=== PATIENT | male | born 1950 | race Caucasian/White ===

== ENCOUNTER → 2016-07-24 | Outpatient (REF) | payer OTHER, MEDICARE ==
[~2016-07-24] MED LIST: ASPI81TA45 OR; CELE100C PO; LIPI10TA; LOVAZA PO; SKEL800T5 PO; TRAM50TA2; TRAM50TA2 OR; VICO5TAB OR; VIT D 2000 PO; VITA50TA12
[2016-07-24 11:58] LABS: INR 0.94
[2016-07-24 12:00] LABS: BASO % 0.4 % (0.0-1.0); EOS # 0.1 K/mm3 (0.0-0.50); EOS % 2.5 % (0.0-3.0); LARGE UNSTAINED CELL # 0.1 K/mm3 (0.0-0.4); LARGE UNSTAINED CELL % 2.1 % (0.0-4.0); LYMPH # 1.6 K/mm3 (1.5-4.5); LYMPH % 27.6 % (24.0-44.0); MEAN CORPUSCULAR HEMOGLOBIN 34.5 pg (27.0-33.0); MEAN CORPUSCULAR HGB CONC 33.7 g/dl (32.0-36.5); MEAN CORPUSCULAR VOLUME 102.6 fl (80.0-96.0); MONO # 0.3 K/mm3 (0.0-0.8); MONO % 6.4 % (0.0-5.0); NEUTROPHILS # 3.3 K/mm3 (1.8-7.7); NEUTROPHILS % 60.9 % (36.0-66.0); PLATELET COUNT, AUTOMATED 137 k/mm3 (150-450); RED CELL DISTRIBUTION WIDTH 12.7 % (11.5-14.5); WHITE BLOOD COUNT 5.4 K/mm3 (4.0-10.0)
[2016-07-24 12:09] LABS: ANION GAP 7 MEQ/L (8-16); BLOOD UREA NITROGEN 14 MG/DL (7-18); CALCIUM LEVEL 8.4 MG/DL (8.8-10.2); CARBON DIOXIDE LEVEL 28 MEQ/L (21-32); CHLORIDE LEVEL 108 MEQ/L (98-107); CREATININE FOR GFR 0.89 MG/DL (0.70-1.30); GLOMERULAR FILTRATION RATE > 60.0 (>49); GLUCOSE, FASTING 98 MG/DL (80-110); SODIUM LEVEL 143 MEQ/L (136-145)
== END ==
LOC: M LABDRAW1 11:38
PROVIDERS: ATTEND Surgery Vascular Surgery
DX: Z01.818 Encounter for other preprocedural examination (principal); I70.211 Atherosclerosis of native arteries of extremities with intermittent claudication, right leg; D69.6 Thrombocytopenia, unspecified

== ENCOUNTER 2016-08-20 12:46 | Inpatient (IN) | payer OTHER, MEDICARE ==
[~2016-08-20] VITALS: Ht 185.4 cm; Wt 106.0 kg
[2016-08-20] MEDS ORDERED: VITA-108 (13:01)
[2016-08-20] MEDS ORDERED: SIMV20TA2 PO ×2 (13:01→16:44)
[2016-08-20] MEDS ORDERED: NS 500 ML IV ONE (13:45)
[2016-08-20] MEDS ORDERED: ISOVUE-370 76% 100ML VIAL (Q9967) As Ordered ONE (14:00)
[2016-08-20 14:03] LABS: BASO % 0.3 % (0.0-1.0); EOS % 0.5 % (0.0-3.0); LARGE UNSTAINED CELL # 0.1 K/mm3 (0.0-0.4); LARGE UNSTAINED CELL % 1.7 % (0.0-4.0); LYMPH # 1.5 K/mm3 (1.5-4.5); LYMPH % 15.9 % (24.0-44.0); MEAN CORPUSCULAR HEMOGLOBIN 33.6 pg (27.0-33.0); MEAN CORPUSCULAR HGB CONC 32.9 g/dl (32.0-36.5); MEAN CORPUSCULAR VOLUME 102.1 fl (80.0-96.0); MONO # 0.5 K/mm3 (0.0-0.8); MONO % 5.6 % (0.0-5.0); NEUTROPHILS # 6.5 K/mm3 (1.8-7.7); NEUTROPHILS % 76.1 % (36.0-66.0); PLATELET COUNT, AUTOMATED 140 k/mm3 (150-450); RED CELL DISTRIBUTION WIDTH 12.8 % (11.5-14.5); WHITE BLOOD COUNT 8.5 K/mm3 (4.0-10.0)
[2016-08-20 14:05] LABS: INR 0.96
[2016-08-20 14:15] LABS: ALBUMIN 3.9 GM/DL (3.2-5.2); ALKALINE PHOSPHATASE 57 U/L (45-117); ALT/SGPT 33 U/L (12-78); ANION GAP 7 MEQ/L (8-16); AST/SGOT 22 U/L (15-37); BILIRUBIN,DIRECT 0.2 MG/DL (0.0-0.2); BILIRUBIN,TOTAL 0.7 MG/DL (0.2-1.0); BLOOD UREA NITROGEN 14 MG/DL (7-18); CALCIUM LEVEL 8.6 MG/DL (8.8-10.2); CARBON DIOXIDE LEVEL 28 MEQ/L (21-32); CHLORIDE LEVEL 105 MEQ/L (98-107); CREATININE FOR GFR 1.08 MG/DL (0.70-1.30); GLOMERULAR FILTRATION RATE > 60.0 (>49); GLUCOSE, FASTING 117 MG/DL (80-110); POTASSIUM SERUM 3.8 MEQ/L (3.5-5.1); SODIUM LEVEL 140 MEQ/L (136-145); TOTAL PROTEIN 6.9 GM/DL (6.4-8.2)
[2016-08-20] MEDS ORDERED: fentaNYL 100 MCG/2 ML INJECTION (J3010) IV ONE (15:30)
[2016-08-20] MEDS ORDERED: VITA-121 PO (16:44)
[2016-08-20] MEDS ORDERED: GLUCTAB6 PO (16:44)
[2016-08-20] MEDS ORDERED: ASPI1TAB PO (16:44)
[2016-08-20] MEDS ORDERED: VITATAB11 PO (16:44)
[2016-08-20] MEDS ORDERED: SENOKOT S TAB PO PRN (16:45)
[2016-08-20] MEDS ORDERED: NORCO, ANEXSIA 5/325MG TABLET (HYDROcodone/ACETAMINOPHEN) PO PRN (16:45)
[2016-08-20] MEDS ORDERED: BISACODYL 5 MG TAB PO PRN (16:45)
[2016-08-20] MEDS ORDERED: MIRALAX *UNIT DOSE* 17GM PACKET PO PRN (16:45)
[2016-08-20] MEDS ORDERED: ONDANSETRON 4MG/2ML VIAL (J2405) IV PRN ×2 (17:00→19:00)
[2016-08-20] MEDS ORDERED: BISACODYL 10 MG SUPP PR PRN (17:00)
[2016-08-20] MEDS ORDERED: LEVALBUTEROL 1.25 MG/0.5 ML CONCENTRATE NEB NEB PRN (17:00)
[2016-08-20] MEDS ORDERED: KETOROLAC 30 MG/ML VIAL (J1885) IV SCH (17:00)
[2016-08-20] MEDS ORDERED: ceFAZolin SOD 1 GM in D5W MINI-BAG PLUS 50 ML IV SCH (17:00)
[2016-08-20] MEDS ORDERED: ACETAMINOPHEN TAB 650MG DOSE (2X325MG) PO PRN (17:00)
[2016-08-20] MEDS ORDERED: PERCOCET 5MG/325MG TAB PO PRN ×2 (17:00)
[2016-08-20] MEDS ORDERED: zolPIDEM TARTRATE 5 MG TAB PO PRN (17:00)
[2016-08-20] MEDS ORDERED: amLODIPine 5 MG TAB PO ONE (17:00)
[2016-08-20] MEDS ORDERED: LEVALBUTEROL 1.25 MG/0.5 ML CONCENTRATE NEB INH PRN (17:15)
[2016-08-20] MEDS ORDERED: KCL 20MEQ IN D5/NS 1000ML 1,000 ML IV SCH (18:00)
[2016-08-20] MEDS ORDERED: LEVALBUTEROL 1.25 MG/0.5 ML CONCENTRATE NEB NEB ONE (18:00)
[2016-08-20] MEDS ORDERED: fentaNYL 100 MCG/2 ML INJECTION (J3010) As Ordered ONE (18:06)
[2016-08-20] MEDS ORDERED: MIDAZOLAM INJ 2 MG/2 ML VIAL (J2250) As Ordered ONE (18:06)
[2016-08-20] MEDS: fentaNYL 100 MCG/2 ML INJECTION (J3010) IV SCH ×2 (18:08→18:13)
[2016-08-20] MEDS ORDERED: MIDAZOLAM INJ 2 MG/2 ML VIAL (J2250) IV SCH (18:30)
[2016-08-20] MEDS ORDERED: FENTANYL 2MCG/ML BUPIVACAINE 0.0625% NACL 250ML CADD As Ordered ONE (18:33)
[2016-08-20] MEDS: FENTANYL/BUPIVACAINE/NACL CADD 250 ML EPIDURAL SCH (18:38)
[2016-08-20] MEDS ORDERED: EPIDURAL/PCA KEYS XX PRN (19:00)
[2016-08-20] MEDS ORDERED: WALLBOXKEY XX PRN (19:00)
[2016-08-20] MEDS ORDERED: diphenhydrAMINE INJ 50MG/ML VIAL (J1200) IV PRN (19:00)
[2016-08-20] MEDS ORDERED: METOCLOPRAMIDE INJ 10MG/2ML VIAL (J2765) IV PRN (19:00)
[2016-08-20] MEDS ORDERED: NALOXONE INJ 0.4 MG/1 ML VIAL (J2310) IV PRN (19:00)
[2016-08-20] MEDS: LEVALBUTEROL 1.25 MG/0.5 ML CONCENTRATE NEB NEB SCH (20:00)
[2016-08-20] MEDS ORDERED: LEVALBUTEROL 1.25 MG/0.5 ML CONCENTRATE NEB INH SCH (20:00)
[2016-08-20 20:08] VITALS: BP 131/73
[2016-08-20] MEDS: MOM 30ML SUSPENSION UDC PO SCH (20:34)
[2016-08-20] MEDS: HEPARIN SOD (PORCINE) 5000 UNITS/ML VIAL SC SCH (20:35)
[2016-08-20] MEDS: KETOROLAC 30 MG/ML VIAL (J1885) IV SCH (20:35)
[2016-08-20] MEDS: DOCUSATE SODIUM 100 MG CAP PO SCH (20:35)
[2016-08-20] MEDS: ASPIRIN 81 MG ENTERIC TAB PO SCH (20:36)
[2016-08-20] MEDS: VITAMIN D 1,000 INTERNATIONAL UNITS TABLET PO SCH (20:36)
[2016-08-20] MEDS: SIMVASTATIN 20 MG TAB PO SCH (20:36)
[2016-08-20] MEDS: PANTOPRAZOLE 40MG TAB (PROTONIX) PO SCH (20:36)
[2016-08-20] MEDS ORDERED: METAXALONE 800 MG TABLET PO SCH (21:00)
[2016-08-20] MEDS: VITAMIN B COMPLEX/VIT C CAP PO SCH (21:00)
[2016-08-20] MEDS ORDERED: VITAMIN D 1,000 INTERNATIONAL UNITS TABLET PO SCH (21:00)
--- NOTE | 2016-08-20 21:17 | ECGEPIP ---
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
[2016-08-20 21:20] LABS: ABG BASE EXCESS 0.5 (-2.0-2.0); ABG HCO3 24.6 MEQ/L (22.0-26.0); ABG PARTIAL PRESSURE CO2 37.6 mmHg (35.0-45.0); ABG STANDARD HCO3 24.9 MEQ/L (22.0-26.0); ABG TOTAL CO2 25.7 MEQ/L (23.0-31.0); ABG pH (ARTERIAL) 7.433 UNITS (7.350-7.450)
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
[2016-08-20 23:59] VITALS: BP 146/79
[2016-08-21] MEDS: KETOROLAC 30 MG/ML VIAL (J1885) IV SCH ×4 (00:59→17:51)
[2016-08-21] MEDS: LEVALBUTEROL 1.25 MG/0.5 ML CONCENTRATE NEB NEB SCH ×4 (02:00→20:22)
[2016-08-21 04:45] VITALS: BP 150/66
[2016-08-21 05:15] LABS: BASO % 0.3 % (0.0-1.0); EOS # 0.1 K/mm3 (0.0-0.50); EOS % 1.2 % (0.0-3.0); LARGE UNSTAINED CELL # 0.2 K/mm3 (0.0-0.4); LARGE UNSTAINED CELL % 3.4 % (0.0-4.0); LYMPH # 2.3 K/mm3 (1.5-4.5); LYMPH % 28.7 % (24.0-44.0); MEAN CORPUSCULAR HEMOGLOBIN 33.6 pg (27.0-33.0); MEAN CORPUSCULAR HGB CONC 32.6 g/dl (32.0-36.5); MEAN CORPUSCULAR VOLUME 103.2 fl (80.0-96.0); MONO # 0.6 K/mm3 (0.0-0.8); NEUTROPHILS # 4.1 K/mm3 (1.8-7.7); NEUTROPHILS % 57.4 % (36.0-66.0); PLATELET COUNT, AUTOMATED 112 k/mm3 (150-450); RED CELL DISTRIBUTION WIDTH 12.9 % (11.5-14.5)
[2016-08-21 05:24] LABS: ALBUMIN/GLOBULIN RATIO 1.15 (1.00-1.93); ALKALINE PHOSPHATASE 47 U/L (45-117); ALT/SGPT 27 U/L (12-78); ANION GAP 8 MEQ/L (8-16); AST/SGOT 14 U/L (15-37); BILIRUBIN,DIRECT 0.2 MG/DL (0.0-0.2); BILIRUBIN,TOTAL 0.6 MG/DL (0.2-1.0); BLOOD UREA NITROGEN 18 MG/DL (7-18); CALCIUM LEVEL 7.8 MG/DL (8.8-10.2); CARBON DIOXIDE LEVEL 27 MEQ/L (21-32); CHLORIDE LEVEL 108 MEQ/L (98-107); CHOLESTEROL LEVEL 112 MG/DL (<200); CREATININE FOR GFR 0.98 MG/DL (0.70-1.30); GLOMERULAR FILTRATION RATE > 60.0 (>49); GLUCOSE, FASTING 106 MG/DL (80-110); MAGNESIUM LEVEL 2.2 MG/DL (1.8-2.4); POTASSIUM SERUM 4.1 MEQ/L (3.5-5.1); SODIUM LEVEL 143 MEQ/L (136-145); TOTAL PROTEIN 5.6 GM/DL (6.4-8.2); TRIGLYCERIDES LEVEL 66 MG/DL (<150)
[2016-08-21 06:32] LABS: ABG BASE EXCESS -2.2 (-2.0-2.0); ABG HCO3 22.2 MEQ/L (22.0-26.0); ABG PARTIAL PRESSURE O2 63.7 mmHg (75.0-100.0); ABG STANDARD HCO3 22.5 MEQ/L (22.0-26.0); ABG TOTAL CO2 23.3 MEQ/L (23.0-31.0); ABG pH (ARTERIAL) 7.396 UNITS (7.350-7.450)
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
[2016-08-21 08:00] VITALS: BP 114/60
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
[2016-08-21] MEDS ORDERED: OMEGA-3 1050MG CAPSULE PO SCH (09:00)
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
[2016-08-21] MEDS ORDERED: LIDOCAINE 1% MDV 20ML VIAL ONE (09:41)
[2016-08-21] MEDS: MOM 30ML SUSPENSION UDC PO SCH (09:54)
[2016-08-21] MEDS: VITAMIN D 1,000 INTERNATIONAL UNITS TABLET PO SCH ×2 (09:54→20:36)
[2016-08-21] MEDS: VITAMIN B COMPLEX/VIT C CAP PO SCH ×2 (09:54→20:36)
[2016-08-21] MEDS: DOCUSATE SODIUM 100 MG CAP PO SCH ×2 (09:55→20:36)
[2016-08-21] MEDS: HEPARIN SOD (PORCINE) 5000 UNITS/ML VIAL SC SCH ×2 (09:56→20:37)
[2016-08-21] MEDS: PANTOPRAZOLE 40MG TAB (PROTONIX) PO SCH (10:00)
[2016-08-21] MEDS: amLODIPine 5 MG TAB PO SCH ×2 (10:01→20:36)
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
[2016-08-21] MEDS ORDERED: SLF 3 ML SYR IV PRN (10:45)
[2016-08-21 11:31] VITALS: BP 131/73
[2016-08-21] MEDS: SLF 3 ML SYR IV SCH ×2 (13:09→20:37)
[2016-08-21 16:00] VITALS: BP 126/68
[2016-08-21 19:53] VITALS: BP 146/69
[2016-08-21] MEDS: FENTANYL/BUPIVACAINE/NACL CADD 250 ML EPIDURAL SCH (20:12)
[2016-08-21] MEDS: SIMVASTATIN 20 MG TAB PO SCH (20:36)
[2016-08-21] MEDS: ASPIRIN 81 MG ENTERIC TAB PO SCH (20:36)
[2016-08-21 23:47] VITALS: BP 134/73
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
[2016-08-22] MEDS: KETOROLAC 30 MG/ML VIAL (J1885) IV SCH ×5 (00:41→23:34)
[2016-08-22] MEDS: LEVALBUTEROL 1.25 MG/0.5 ML CONCENTRATE NEB NEB SCH ×4 (02:15→21:54)
[2016-08-22 04:35] VITALS: BP 130/65
[2016-08-22] MEDS: SLF 3 ML SYR IV SCH ×3 (05:33→20:59)
[2016-08-22 05:39] LABS: BASO % 0.3 % (0.0-1.0); EOS # 0.1 K/mm3 (0.0-0.50); EOS % 1.2 % (0.0-3.0); LARGE UNSTAINED CELL # 0.1 K/mm3 (0.0-0.4); LARGE UNSTAINED CELL % 1.6 % (0.0-4.0); LYMPH # 1.9 K/mm3 (1.5-4.5); LYMPH % 26.3 % (24.0-44.0); MEAN CORPUSCULAR HGB CONC 33.6 g/dl (32.0-36.5); MEAN CORPUSCULAR VOLUME 101.1 fl (80.0-96.0); MONO # 0.5 K/mm3 (0.0-0.8); MONO % 7.3 % (0.0-5.0); NEUTROPHILS # 4.4 K/mm3 (1.8-7.7); NEUTROPHILS % 63.3 % (36.0-66.0); RED CELL DISTRIBUTION WIDTH 12.7 % (11.5-14.5); WHITE BLOOD COUNT 6.9 K/mm3 (4.0-10.0)
[2016-08-22 05:54] LABS: ANION GAP 5 MEQ/L (8-16); BLOOD UREA NITROGEN 20 MG/DL (7-18); CALCIUM LEVEL 8.2 MG/DL (8.8-10.2); CARBON DIOXIDE LEVEL 29 MEQ/L (21-32); CHLORIDE LEVEL 108 MEQ/L (98-107); CREATININE FOR GFR 0.94 MG/DL (0.70-1.30); GLOMERULAR FILTRATION RATE > 60.0 (>49); GLUCOSE, FASTING 93 MG/DL (80-110); POTASSIUM SERUM 4.2 MEQ/L (3.5-5.1); SODIUM LEVEL 142 MEQ/L (136-145)
[2016-08-22 06:06] LABS: PLATELET COUNT, AUTOMATED 94 k/mm3 (150-450)
--- NOTE | 2016-08-22 07:29 | IPN ---
DATE: 08/22/2016 This is now the second hospital day for Mr. Cano. His posterior, inferior and lateral chest wall pain is being well controlled by epidural. He still complains of pain at the fractured clavicle on the left side. He is coughing, able to take deep breaths and is able to move about. His vital signs show a T-max of 99.4 with a heart rate that ranges between 68 and 76 in a sinus rhythm, respiratory rate that is constant at 18 who is 91 to 90% saturated on room air and has blood pressures ranging between 146/69 to 130/65. His intake and output over the past 24 hours has been recorded as 1674 in and 950 out for a positivity of 725 mL. He is now approximately 2300 mL positive. His weight today is 103.3 kg compared to 99.7 kg on admission. On physical examination, he has bilateral crackles both inspiration and expiration with scattered rhonchi throughout. Most of these clear with coughing. Percussion note is full to the diaphragm. Cardiac exam is without murmurs, clicks, gallops or rubs. I cannot feel his PMI. S1 and S2 are normal. Abdomen is soft, nontender, bowel sounds are positive. There is no hepatomegaly. No CVA tenderness. He is tympanitic and slightly distended. He had a bowel movement. Extremities show trace pretibial edema. No calf tenderness. No differential swelling of the upper extremities. Skin is warm, dry and perfused without cyanosis or mottling including that of the nail beds and knees. Neck is supple. There is no jugular venous distention. No subcutaneous emphysema. Trachea is midline. Mouth shows his mucous membranes to be pink and moist. Lips and commissures are without lesions. No thrush. Eyes show his pupils to be equal and reactive. Extraocular motor intact. Sclera anicteric. Neuro shows II through XII intact with gross motor and gross sensation intact. Gait is not tested. Psychiatric shows him to be awake and alert, oriented times three with appropriate mood and affect and conversational. INVESTIGATIONS: His white count today is 6.9 with hemoglobin and hematocrit of 12.0 and 35.7 respectively. Platelet count today is 94 down from 140 on admission and 112 yesterday. Differential shows 63% neutrophils, 26% lymphocytes, 7% monocytes. There are no immature forms of toxic granulations. His electrolytes are normal with a BUN and creatinine of 20 and 0.94 with a glucose of 93 and a calcium of 8.2. His chest x-ray is still pending and I will check it later on this morning. IMPRESSION: 1. Multiple rib fractures left side. 2. Underlying lung contusion. 3. Macrocytosis. 4. Concussion with no further sequela. 5. History of coronary disease. 6. Hyperlipidemia. 7. Fracture left clavicle. 8. Thrombocytopenia. 9. Hypertension. PLAN AND DISCUSSION: We will continue the epidural today. I will plan to start weaning it tomorrow and convert him to oral pain medicines. His platelet count continues to go down and I will therefore discontinue the heparin and check for heparin induced antibodies. I do note that yesterday he had a small pleural effusion on the lateral chest film on the left side that probably represented a small hemothorax. I will check the chest x-ray as soon as it is done today.
[2016-08-22 07:48] VITALS: BP 140/68
[2016-08-22] MEDS: MOM 30ML SUSPENSION UDC PO SCH (08:54)
[2016-08-22] MEDS: DOCUSATE SODIUM 100 MG CAP PO SCH ×2 (08:54→20:58)
[2016-08-22] MEDS: VITAMIN B COMPLEX/VIT C CAP PO SCH ×2 (08:54→20:58)
[2016-08-22] MEDS: PANTOPRAZOLE 40MG TAB (PROTONIX) PO SCH (08:54)
[2016-08-22] MEDS: VITAMIN D 1,000 INTERNATIONAL UNITS TABLET PO SCH ×2 (08:54→20:59)
[2016-08-22] MEDS: amLODIPine 5 MG TAB PO SCH ×2 (08:55→20:41)
[2016-08-22] MEDS: SENOKOT S TAB PO SCH ×2 (08:56→20:58)
--- NOTE | 2016-08-22 10:58 | REP ---
TWO VIEW CHEST: Two views of the chest are performed and compared to a prior study of 08/21/2016. There are left rib fractures. I do not see a significant pneumothorax. There is mild left lateral pleural thickening. There appears to be a small left pleural effusion. There is mild left basilar atelectasis/infiltrate. The right lung remains clear. The cardiomediastinal silhouette is unchanged. IMPRESSION: No significant pneumothorax on the left. Left rib fractures are again noted. There is a small left effusion and basilar atelectasis/infiltrate. Signed by Alfonso Bird MD 08/22/2016 04:22 P
[2016-08-22 11:50] VITALS: BP 136/63
--- NOTE | 2016-08-22 15:58 | ECHO ---
DATE OF PROCEDURE: 08/21/2016 REFERRING PHYSICIAN: Mercedse Barroso MD INDICATION: Heart murmur. HEIGHT: 185 cm WEIGHT: 100 kg DIMENSIONS: IVS: 1.3 LV: 5.1 LVPW: 1.3 LA: 4.4 Aorta: 3.6 FINDINGS: The study is of rather limited technical quality. Left ventricle is of normal size and grossly normal contractility with estimated left ventricular ejection fraction (LVEF) approximately 65%. Mild left ventricular hypertrophy is noted. Right ventricle appears normal size and systolic function. Left atrium is at least mildly enlarged. Right atrium was poorly seen. Aortic valve is tricuspid. It is mildly sclerotic, but mobility appears to be grossly preserved. Mitral valve and tricuspid valves appear normal. The pulmonic valve was not well seen. No pericardial effusion is noted. Inferior vena cava is dilated, but has normal collapse with respiration indicative of probably mildly elevated central venous pressure. Aortic root is normal. Aortic arch and abdominal aorta were not seen. Doppler interrogation of aortic valve reveals no insufficiency and minimal stenosis with mean gradient 10 mmHg. There is normally functioning mitral valve and normally functioning tricuspid valve; also pulmonic valve does not appear to be insufficient even though the visualization was poor. Mitral inflow pattern and tissue Doppler imaging of mitral annulus reveal grade 1 diastolic dysfunction, likely normal finding for patient's age. CONCLUSIONS: 1. Study is of fair technical quality. 2. Normal left ventricle (LV) size with mild left ventricular hypertrophy (LVH) and normal LV systolic function. Grade 1 diastolic dysfunction. 3. Aortic sclerosis resulting in mild stenosis and no insufficiency. 4. No significant pulmonic, tricuspid and mitral valve disease. 5. Likely mildly elevated central venous pressure. 6. Unable to estimate pulmonary artery pressure. COMMENT: Subacute bacterial endocarditis (SBE) prophylaxis is not recommended. Due to limited nature of the study I cannot rule out subtle wall motion abnormalities, but overall left ventricular systolic function is preserved.
[2016-08-22 16:00] VITALS: BP 110/61
[2016-08-22] MEDS: FENTANYL/BUPIVACAINE/NACL CADD 250 ML EPIDURAL SCH (16:39)
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
[2016-08-22 19:42] VITALS: BP 131/66
[2016-08-22] MEDS: SIMVASTATIN 20 MG TAB PO SCH (20:58)
[2016-08-22] MEDS: ASPIRIN 81 MG ENTERIC TAB PO SCH (20:58)
[2016-08-23] VITALS (7 sets, daily range): BP systolic 118–162; BP diastolic 61–94
[2016-08-23] MEDS: LEVALBUTEROL 1.25 MG/0.5 ML CONCENTRATE NEB NEB SCH ×4 (02:49→20:54)
[2016-08-23] MEDS: SLF 3 ML SYR IV SCH ×3 (05:40→20:41)
[2016-08-23] MEDS: KETOROLAC 30 MG/ML VIAL (J1885) IV SCH ×4 (05:40→23:46)
[2016-08-23 06:16] LABS: BASO % 0.4 % (0.0-1.0); EOS # 0.2 K/mm3 (0.0-0.50); EOS % 2.5 % (0.0-3.0); LARGE UNSTAINED CELL # 0.2 K/mm3 (0.0-0.4); LARGE UNSTAINED CELL % 2.4 % (0.0-4.0); LYMPH # 1.8 K/mm3 (1.5-4.5); LYMPH % 25.9 % (24.0-44.0); MEAN CORPUSCULAR HEMOGLOBIN 33.8 pg (27.0-33.0); MEAN CORPUSCULAR HGB CONC 33.1 g/dl (32.0-36.5); MONO # 0.5 K/mm3 (0.0-0.8); MONO % 7.6 % (0.0-5.0); NEUTROPHILS # 3.8 K/mm3 (1.8-7.7); NEUTROPHILS % 61.3 % (36.0-66.0); RED CELL DISTRIBUTION WIDTH 12.8 % (11.5-14.5); WHITE BLOOD COUNT 6.2 K/mm3 (4.0-10.0)
[2016-08-23 06:20] LABS: ANION GAP 6 MEQ/L (8-16); BLOOD UREA NITROGEN 23 MG/DL (7-18); CALCIUM LEVEL 7.9 MG/DL (8.8-10.2); CARBON DIOXIDE LEVEL 27 MEQ/L (21-32); CHLORIDE LEVEL 109 MEQ/L (98-107); CREATININE FOR GFR 0.89 MG/DL (0.70-1.30); GLOMERULAR FILTRATION RATE > 60.0 (>49); GLUCOSE, FASTING 88 MG/DL (80-110); SODIUM LEVEL 142 MEQ/L (136-145)
[2016-08-23 06:23] LABS: PLATELET COUNT, AUTOMATED 98 k/mm3 (150-450)
[2016-08-23] MEDS ORDERED: MAGNESIUM CITRATE 300 ML BTL PO ONE (08:30)
[2016-08-23] MEDS: VITAMIN D 1,000 INTERNATIONAL UNITS TABLET PO SCH ×2 (09:00→20:40)
[2016-08-23] MEDS: DOCUSATE SODIUM 100 MG CAP PO SCH ×2 (09:27→20:38)
[2016-08-23] MEDS: PANTOPRAZOLE 40MG TAB (PROTONIX) PO SCH (09:27)
[2016-08-23] MEDS: SENOKOT S TAB PO SCH ×2 (09:27→20:41)
[2016-08-23] MEDS: VITAMIN B COMPLEX/VIT C CAP PO SCH ×2 (09:27→20:38)
[2016-08-23] MEDS: MOM 30ML SUSPENSION UDC PO SCH (09:28)
[2016-08-23] MEDS: amLODIPine 5 MG TAB PO SCH ×2 (09:28→20:40)
--- NOTE | 2016-08-23 10:02 | REP ---
CHEST, TWO VIEWS: Two views of the chest are performed and compared to a prior study of 08/22/2016. Multiple left rib fractures are again noted with left pleural thickening laterally. Left clavicular fracture is also seen. There is no definite pneumothorax. Left basilar atelectasis/infiltrate and small left effusion are again noted. There may be mild increase in the degree of left lower lobe atelectasis/infiltrate. The right lung is unchanged in appearance as is the cardiomediastinal silhouette. IMPRESSION: Posttraumatic findings on the left as discussed in detail above for the most part appear stable but there may be mild increase in left lower lobe atelectasis/infiltrate. Signed by Alfonso Bird MD 08/23/2016 02:25 P
[2016-08-23] MEDS ORDERED: MAGNESIUM CITRATE 300 ML BTL PO PRN (12:30)
--- NOTE | 2016-08-23 14:52 | IPN ---
DATE: 08/23/2016 Mr. Cano's pain control is doing fairly well. We are weaning the epidural at this point in time and we are down to 6 mL per hour. He still has clavicular pain and he is starting to develop left posterior hemithorax pain. We will supplement his wean with oral analgesics. He is able to cough and bring up sputum, deep breathe and ambulate. His vital signs show a T-max of 99.1 with a heart rate that ranges between 75 and 67 and is sinus rhythm, respiratory rate of 18-20 without the use of accessory muscles, who is 91 to 95% saturated on room air and whose blood pressure is ranging between 134/69 to 140/77. His intake and output the past 24 hours has been recorded as 1476 in and 1475 out for near equality. Weight today is 104.4 kg compared to 103.3 kg yesterday. On physical examination, his lungs show normal vesicular sounds, which are accentuated with course rhonchi, which clear with coughing. The crackles I heard yesterday are much diminished. Percussion note is full to the diaphragm. Cardiac exam is without murmurs, clicks, gallops or rubs. I cannot feel his PMI. S1 and S2 are normal. Abdomen is soft, nontender, still distended. He has a bowel movement however. Bowel sounds are positive. There is no hepatomegaly. No CVA tenderness. Extremities show trace pretibial edema today. No calf tenderness. No differential swelling of the upper extremities. Skin is warm, dry and perfused without cyanosis or mottling including that of the nail beds and knees. Neck is supple. There is no jugular venous distention. No subcutaneous emphysema. Trachea is midline. Mouth shows his mucous membranes to be pink and moist. Lips and commissures are without lesions. There is no thrush. Eyes show his pupils to be equal and reactive. Extraocular motors intact. Sclera nonicteric. Neuro shows II through XII intact along with gross motor and gross sensation intact. Gait is not tested. Psychiatric shows him to be awake and alert, oriented times three with appropriate mood and affect and conversational. His white count today is 6.2 with hemoglobin and hematocrit of 11.4 and 35.5. Platelet count today is 98 and stabilized. Differential shows 61% neutrophils, 25% lymphocytes, 7% monocytes. There are no immature forms. No toxic granulations. His electrolytes are essentially normal with a BUN and creatinine of 23 and 0.89 with a glucose of 88 and a calcium of 7.9. His heparin induced antibody is still pending. His chest x-ray today shows his lung fully expanded to the chest wall. The pleural effusion in the left costophrenic angle is resolving. He has pleural thickening of the rib fractures. The lateral film looks improved with regard to the pleural collection. He still has atelectasis in the posterior segment of the left lower lobe. There is no subcutaneous emphysema. IMPRESSION: 1. Multiple rib fractures left side. 2. Underlying lung contusion. 3. Macrocytosis. 4. Concussion with no further sequela. 5. History of coronary artery disease. 6. Hyperlipidemia. 7. Fracture of the left clavicle. 8. Thrombocytopenia, stabilized. 9. Hypertension. 10. Chronic obstructive pulmonary disease (COPD). 11. Tobacco abuse. PLAN AND DISCUSSION: We are going to wean his epidural today and change him over to oral pain medications. If the oral pain medications do not hold him, I will add a fentanyl patch. Tentatively I am planning to discharge him tomorrow.
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
[2016-08-23] MEDS: traMADol 50 MG TAB PO SCH ×2 (17:21→20:40)
[2016-08-23] MEDS: SIMVASTATIN 20 MG TAB PO SCH (20:38)
[2016-08-23] MEDS: ASPIRIN 81 MG ENTERIC TAB PO SCH (20:40)
[2016-08-23] MEDS: NORCO, ANEXSIA 5/325MG TABLET (HYDROcodone/ACETAMINOPHEN) PO PRN (22:29)
[2016-08-24] MEDS: LEVALBUTEROL 1.25 MG/0.5 ML CONCENTRATE NEB NEB SCH ×4 (02:33→20:21)
[2016-08-24] MEDS: NORCO, ANEXSIA 5/325MG TABLET (HYDROcodone/ACETAMINOPHEN) PO PRN ×2 (03:55→16:52)
[2016-08-24 04:00] VITALS: BP 121/87
[2016-08-24] MEDS: KETOROLAC 30 MG/ML VIAL (J1885) IV SCH ×3 (05:43→17:56)
[2016-08-24] MEDS: SLF 3 ML SYR IV SCH ×3 (05:43→21:23)
[2016-08-24 05:56] LABS: BASO % 0.4 % (0.0-1.0); EOS # 0.2 K/mm3 (0.0-0.50); EOS % 3.5 % (0.0-3.0); LARGE UNSTAINED CELL # 0.1 K/mm3 (0.0-0.4); LARGE UNSTAINED CELL % 2.7 % (0.0-4.0); LYMPH # 1.5 K/mm3 (1.5-4.5); LYMPH % 25.7 % (24.0-44.0); MEAN CORPUSCULAR HEMOGLOBIN 33.7 pg (27.0-33.0); MEAN CORPUSCULAR HGB CONC 33.3 g/dl (32.0-36.5); MEAN CORPUSCULAR VOLUME 101.2 fl (80.0-96.0); MONO # 0.4 K/mm3 (0.0-0.8); NEUTROPHILS # 3.2 K/mm3 (1.8-7.7); NEUTROPHILS % 60.8 % (36.0-66.0); PLATELET COUNT, AUTOMATED 106 k/mm3 (150-450); RED CELL DISTRIBUTION WIDTH 12.7 % (11.5-14.5); WHITE BLOOD COUNT 5.2 K/mm3 (4.0-10.0)
[2016-08-24 06:07] LABS: ANION GAP 3 MEQ/L (8-16); BLOOD UREA NITROGEN 21 MG/DL (7-18); CALCIUM LEVEL 8.5 MG/DL (8.8-10.2); CARBON DIOXIDE LEVEL 31 MEQ/L (21-32); CHLORIDE LEVEL 106 MEQ/L (98-107); CREATININE FOR GFR 0.91 MG/DL (0.70-1.30); GLOMERULAR FILTRATION RATE > 60.0 (>49); GLUCOSE, FASTING 105 MG/DL (80-110); POTASSIUM SERUM 4.5 MEQ/L (3.5-5.1); SODIUM LEVEL 140 MEQ/L (136-145)
[2016-08-24 07:40] VITALS: BP 108/71
[2016-08-24] MEDS: SENOKOT S TAB PO SCH ×2 (09:03→21:23)
[2016-08-24] MEDS: VITAMIN D 1,000 INTERNATIONAL UNITS TABLET PO SCH ×2 (09:03→21:23)
[2016-08-24] MEDS: VITAMIN B COMPLEX/VIT C CAP PO SCH ×2 (09:03→21:23)
[2016-08-24] MEDS: amLODIPine 5 MG TAB PO SCH ×2 (09:03→21:00)
[2016-08-24] MEDS: PANTOPRAZOLE 40MG TAB (PROTONIX) PO SCH (09:03)
[2016-08-24] MEDS: DOCUSATE SODIUM 100 MG CAP PO SCH ×2 (09:03→21:23)
[2016-08-24] MEDS: MOM 30ML SUSPENSION UDC PO SCH (09:03)
[2016-08-24] MEDS: traMADol 50 MG TAB PO SCH ×2 (09:04→12:26)
--- NOTE | 2016-08-24 09:15 | REP ---
CHEST PA AND LATERAL: 08/24/2016. Clinical history: Lung contusion. Comparison 08/23/2016, 08/22/2016. The retrocardiac left lower lobe atelectasis or infiltrate with effusion is again noted, it shows slight further increase. There is a slight decrease in overall level of inflation. The epidural catheter has been removed. Fracture of the mid shaft left clavicle and multiple left rib fractures again noted. Some minor apical scarring bilaterally with pleural thickening both sides, unchanged. No free air. Impression: 1. A lesser degree of inflation with increased retrocardiac left lower lobe atelectasis and/or infiltrate with effusion. 2. The post-traumatic changes of fractures of the left clavicle and upper lateral left ribs are stable. Signed by Nabil Apodaca MD 08/24/2016 02:53 P
[2016-08-24 12:00] VITALS: BP 120/61
[2016-08-24] MEDS ORDERED: FENTANYL REMOVAL DOCUMENTATION MISC XX SCH (15:00)
[2016-08-24] MEDS ORDERED: PERCOCET 5MG/325MG TAB PO PRN (15:00)
[2016-08-24] MEDS ORDERED: fentaNYL 25 MCG/HR PATCH TOP SCH (15:00)
[2016-08-24] MEDS ORDERED: FUROSEMIDE 40 MG/4 ML VIAL (J1940) IV ONE (15:00)
[2016-08-24 16:00] VITALS: BP 125/69
--- NOTE | 2016-08-24 19:07 | IPN ---
DATE: 08/24/2016 My intention was to discharge Mr. Cano today, however, his pain is still significant and he has major rhonchi which are not clearing with cough very well as he cannot cough very well. I am therefore going to change his pain medications around. His vital signs show a T-max of 98.9 with a heart rate that ranges between 61 and 57 in a sinus rhythm, respiratory rate of 18 to 20 without the use of accessory muscles who is 94 to 93% saturated on room air and his blood pressure is ranging between 120/61 to 108/71. His intake and output over the past 24 hours has been recorded as 1823 in and 650 out for a positivity of 1173 mL. His is now positive nearly 3000 mL. I will therefore also diurese him. His weight today is 105.5 kg compared to 104.4 kg yesterday. PHYSICAL EXAMINATION: Both lungs show coarse rhonchi throughout which do not all clear with coughing. Percussion note is full to the diaphragm. Cardiac exam is without murmurs, clicks, gallops or rubs. I cannot feel his point of maximal impulse (PMI). S1 and S2 are normal. Abdomen is soft and nontender. Bowel sounds are positive. There is no hepatomegaly. No costovertebral angle (CVA) tenderness. Extremities show no pretibial edema. No calf tenderness. No differential swelling of the upper extremities. Skin is warm, dry and perfused without cyanosis or mottling including that of the nail beds and the knees. Neck is supple. There is no jugular venous distention. No subcutaneous emphysema. Trachea is midline. Mouth shows his mucous membranes to be pink and moist. Lips and commissures without lesions. No thrush. Eyes show his pupils to be equal, reactive. Extraocular muscles intact. Sclera anicteric. Neuro shows II through XII intact. Gross motor and gross sensation intact. Gait is not tested. Psychiatric shows him to be awake, alert and oriented times three with appropriate mood, affect and conversational. His white count today is 5.2 with a hemoglobin and hematocrit of 11.9 and 35.7, essentially unchanged from yesterday with a platelet count of 106 which is now going up. I have discontinued his heparin a few days ago, secondary to a decreasing platelet count. Differential shows 60% neutrophils, 25% lymphocytes, 7% monocytes, 3% eosinophils. Chemistry: Normal electrolytes with a BUN and creatine of 21 and 0.91. Glucose is 105 with a calcium of 8.5. Heparin induced antibody is 0.166 which is within normal limits. IMPRESSION: 1. Multiple rib fractures left side. 2. Underlying lung contusion. 3. Macrocytosis. 4. Concussion with no further sequela. 5. History of coronary disease. 6. Hyperlipidemia. 7. Fracture of the left clavicle. 8. Thrombocytopenia, stabilized. 9. Hypertension. 10. Chronic obstructive pulmonary disease. 11. Tobacco abuse. 12. Inadequate pain control with decreased clearing of secretions. PLAN AND DISCUSSION: I will add fentanyl patch along and will also diurese him. We will get him up and around walking and try and make him cough and deep breath. He is already on lung expansion therapy. Hopefully we will be able to discharge him tomorrow.
[2016-08-24 20:00] VITALS: BP 125/68
[2016-08-24] MEDS: ASPIRIN 81 MG ENTERIC TAB PO SCH (21:23)
[2016-08-24] MEDS: SIMVASTATIN 20 MG TAB PO SCH (21:23)
[2016-08-24 23:59] VITALS: BP 141/78
[2016-08-25] MEDS: KETOROLAC 30 MG/ML VIAL (J1885) IV SCH ×3 (00:29→11:50)
[2016-08-25] MEDS: LEVALBUTEROL 1.25 MG/0.5 ML CONCENTRATE NEB NEB SCH ×3 (02:00→13:30)
[2016-08-25 04:00] VITALS: BP 131/65
[2016-08-25 06:04] LABS: BASO % 0.3 % (0.0-1.0); EOS # 0.2 K/mm3 (0.0-0.50); EOS % 2.7 % (0.0-3.0); LARGE UNSTAINED CELL # 0.1 K/mm3 (0.0-0.4); LARGE UNSTAINED CELL % 1.9 % (0.0-4.0); LYMPH # 1.4 K/mm3 (1.5-4.5); LYMPH % 17.6 % (24.0-44.0); MEAN CORPUSCULAR HEMOGLOBIN 33.9 pg (27.0-33.0); MEAN CORPUSCULAR HGB CONC 33.5 g/dl (32.0-36.5); MEAN CORPUSCULAR VOLUME 101.3 fl (80.0-96.0); MONO # 0.6 K/mm3 (0.0-0.8); MONO % 7.8 % (0.0-5.0); NEUTROPHILS # 5.1 K/mm3 (1.8-7.7); NEUTROPHILS % 69.8 % (36.0-66.0); PLATELET COUNT, AUTOMATED 126 k/mm3 (150-450); RED CELL DISTRIBUTION WIDTH 12.9 % (11.5-14.5); WHITE BLOOD COUNT 7.2 K/mm3 (4.0-10.0)
[2016-08-25 06:05] LABS: ANION GAP 6 MEQ/L (8-16); BLOOD UREA NITROGEN 24 MG/DL (7-18); CALCIUM LEVEL 8.4 MG/DL (8.8-10.2); CARBON DIOXIDE LEVEL 30 MEQ/L (21-32); CHLORIDE LEVEL 102 MEQ/L (98-107); CREATININE FOR GFR 0.96 MG/DL (0.70-1.30); GLOMERULAR FILTRATION RATE > 60.0 (>49); GLUCOSE, FASTING 92 MG/DL (80-110); POTASSIUM SERUM 4.5 MEQ/L (3.5-5.1); SODIUM LEVEL 138 MEQ/L (136-145)
[2016-08-25] MEDS: SLF 3 ML SYR IV SCH (06:19)
[2016-08-25 08:00] VITALS: BP 129/69
[2016-08-25] MEDS: VITAMIN B COMPLEX/VIT C CAP PO SCH (08:58)
[2016-08-25] MEDS: MOM 30ML SUSPENSION UDC PO SCH (08:58)
[2016-08-25] MEDS: VITAMIN D 1,000 INTERNATIONAL UNITS TABLET PO SCH (08:58)
[2016-08-25 08:59] VITALS: BP 129/69
[2016-08-25] MEDS: SENOKOT S TAB PO SCH (08:59)
[2016-08-25] MEDS: DOCUSATE SODIUM 100 MG CAP PO SCH (08:59)
[2016-08-25] MEDS: amLODIPine 5 MG TAB PO SCH (08:59)
[2016-08-25] MEDS: PANTOPRAZOLE 40MG TAB (PROTONIX) PO SCH (08:59)
[2016-08-25 12:00] VITALS: BP 130/73
[2016-08-25] MEDS ORDERED: PERCOCET PO (12:03)
[2016-08-25] MEDS ORDERED: FENT25PA TOP (12:03)
--- NOTE | 2016-08-25 12:06 | REP ---
Chest x-ray: Two views. History: Lung contusion. Comparison study: August 24, 2016. Findings: There is coarse discoid atelectasis in the right lower lobe which is more pronounced than on yesterday's radiograph. There is increased density in the left lower lobe obscuring the descending aorta and the left hemidiaphragm partially consistent with atelectasis in the left lower lobe. This is unchanged. Some pleural thickening is seen along the left lateral chest wall. There is a displaced rib fracture along the left lateral chest wall as well. This is unchanged. No pneumothorax is seen. Impression: Increased discoid atelectasis right lower lobe region compared to yesterday's study. Atelectasis, small pleural effusion, and some left pleural thickening seen on the left side unchanged. Signed by Vernon Funk MD 08/25/2016 01:24 P
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
== END 2016-08-25 15:33 | disposition home or self-care (01) | DRG 184 ==
LOC: EDBD 12:46 → M ED 14:17 → M ED INP 16:49 → M PCU 19:17
PROVIDERS: ADMIT Thoracic Surgery (Cardiothoracic Vascular Surgery); ATTEND Thoracic Surgery (Cardiothoracic Vascular Surgery)
PROC: 3E0S3NZ Introduction of Analgesics, Hypnotics, Sedatives into Epidural Space, Percutaneous Approach (ICD-10-PCS; principal; 2016-08-20 17:33)
DX: S22.42XA Multiple fractures of ribs, left side, initial encounter for closed fracture (principal); S27.329A Contusion of lung, unspecified, initial encounter; S42.025A Nondisplaced fracture of shaft of left clavicle, initial encounter for closed fracture; J44.9 Chronic obstructive pulmonary disease, unspecified; F17.210 Nicotine dependence, cigarettes, uncomplicated; I10 Essential (primary) hypertension; D69.6 Thrombocytopenia, unspecified; E78.5 Hyperlipidemia, unspecified; I25.10 Atherosclerotic heart disease of native coronary artery without angina pectoris; D75.89 Other specified diseases of blood and blood-forming organs; Z79.82 Long term (current) use of aspirin; Z79.899 Other long term (current) drug therapy; Z86.718 Personal history of other venous thrombosis and embolism; I73.9 Peripheral vascular disease, unspecified; M19.90 Unspecified osteoarthritis, unspecified site; Z85.51 Personal history of malignant neoplasm of bladder; S06.0X0A Concussion without loss of consciousness, initial encounter; K59.00 Constipation, unspecified; V23.4XXA Motorcycle driver injured in collision with car, pick-up truck or van in traffic accident, initial encounter

== ENCOUNTER 2016-08-27 17:37 | Inpatient (IN) | payer OTHER, MEDICARE ==
[~2016-08-27] VITALS: Ht 185.4 cm; Wt 103.6 kg
[~2016-08-27 17:37] MED LIST changes: +ASPI1TAB PO; +FENT25PA TOP; +GLUCTAB6 PO; +PERCOCET PO; +SIMV20TA2 PO; +VITA-108; +VITA-121 PO; +VITATAB11 PO
[2016-08-27] MEDS ORDERED: methylPREDNISolone INJ 125 MG/2 ML VIAL (J2930) IV ONE (18:00)
[2016-08-27] MEDS ORDERED: IPRATROPIUM 0.5MG/ALBUTEROL 2.5MG INH SOL UD 3ML (DUONEB)(J7620) NEB ONE (18:00)
[2016-08-27] MEDS ORDERED: ALBUTEROL SULFATE 2.5 MG/0.5 ML INH NEB SOLN INH ONE (18:00)
[2016-08-27 18:52] LABS: BASO % 0.3 % (0.0-1.0); EOS # 0.1 K/mm3 (0.0-0.50); EOS % 2.1 % (0.0-3.0); LARGE UNSTAINED CELL # 0.2 K/mm3 (0.0-0.4); LARGE UNSTAINED CELL % 2.2 % (0.0-4.0); LYMPH # 1.6 K/mm3 (1.5-4.5); LYMPH % 20.8 % (24.0-44.0); MEAN CORPUSCULAR HEMOGLOBIN 34.1 pg (27.0-33.0); MEAN CORPUSCULAR VOLUME 100.2 fl (80.0-96.0); MONO # 0.4 K/mm3 (0.0-0.8); MONO % 6.2 % (0.0-5.0); NEUTROPHILS # 4.8 K/mm3 (1.8-7.7); NEUTROPHILS % 68.4 % (36.0-66.0); PLATELET COUNT, AUTOMATED 160 k/mm3 (150-450)
[2016-08-27 19:15] LABS: ANION GAP 10 MEQ/L (8-16); BLOOD UREA NITROGEN 21 MG/DL (7-18); CALCIUM LEVEL 8.7 MG/DL (8.8-10.2); CARBON DIOXIDE LEVEL 27 MEQ/L (21-32); CHLORIDE LEVEL 104 MEQ/L (98-107); CREATININE FOR GFR 0.99 MG/DL (0.70-1.30); GLOMERULAR FILTRATION RATE > 60.0 (>49); GLUCOSE, FASTING 107 MG/DL (80-110); POTASSIUM SERUM 4.2 MEQ/L (3.5-5.1); SODIUM LEVEL 141 MEQ/L (136-145)
[2016-08-27] MEDS ORDERED: PERCOCET 5MG/325MG TAB PO ONE (19:15)
[2016-08-27] MEDS ORDERED: ISOVUE-370 76% 100ML VIAL (Q9967) As Ordered ONE (19:36)
--- NOTE | 2016-08-27 20:10 | REPUSA ---
CT angiogram of the chest Clinical statement: Chest pain and shortness of breath. Technique: Multiple axial CT images were obtained from the thoracic inlet through the upper abdomen a fter a bolus administration of nonionic intravenous contrast. Coronal and sagittal reconstructions we re also obtained. Comparison: August 20, 2016. Findings: The pulmonary arteries are well-opacified with contrast, with no intraluminal filling defec ts to suggest embolism. The thoracic aorta is unremarkable. Thyroid gland is within normal limits. Th ere is no thoracic lymphadenopathy. There is a moderate left-sided pleural effusion with infiltrate and consolidation of the left lower lobe. Minimal atelectasis is seen in the right lower lobe. Limit ed imaging of the upper abdomen is unremarkable. There are no suspicious osseous lesions. Impression: 1. No evidence of pulmonary embolism. 2 Moderate left-sided pleural effusion with left lower lobe infiltrate and consolidation. 3. Minimal atelectasis in the right lower lobe.
[2016-08-27] MEDS ORDERED: NS 1,000 ML IV ONE (20:45)
[2016-08-27] MEDS ORDERED: AZITHROMYCIN INJ 500 MG, VIAL MATE ADAPTER 1 EACH in D5W 250 ML IV ONE (20:45)
[2016-08-27] MEDS ORDERED: CEFEPIME HCL 2 GM in D5W MINI-BAG PLUS 50 ML IV ONE (20:45)
[2016-08-27] MEDS ORDERED: VANCOMYCIN HCL 1,000 MG, VIAL MATE ADAPTER 1 EACH in D5W 250 ML IV ONE (20:45)
[2016-08-27] MEDS ORDERED: PERC5TAB6 PO (21:35)
[2016-08-27] MEDS ORDERED: FENT25PA TD (21:35)
[2016-08-27] MEDS ORDERED: ONDANSETRON 4MG/2ML VIAL (J2405) IV PRN (22:00)
[2016-08-27] MEDS ORDERED: PERCOCET 5MG/325MG TAB PO PRN (22:00)
[2016-08-27] MEDS ORDERED: FENTANYL REMOVAL DOCUMENTATION MISC XX SCH (22:00)
[2016-08-27] MEDS ORDERED: IPRATROPIUM 0.5MG/ALBUTEROL 2.5MG INH SOL UD 3ML (DUONEB)(J7620) NEB PRN (22:00)
--- NOTE | 2016-08-27 23:16 | PHACANCOPD ---
PHARMACY VANCOMYCIN DOSING Pt Demographics Demographics Patient Age:66 , Weight: , Gender: male Adjusted Body Weight Date: 08/27/16, Adjusted Body Weight: [88] Kg Events Past 24 Hours Events Past 24 Hours: NO: Change in CrCl, Dialysis, Diuretic Therapy, Elevation in WBC, Fever, Other, Pending Diagnostics, Pending Procedures Vancomycin Vancomycin Target Ranges: 15-20 mcg/ml Vancomycin Load Y/N: Yes Load Dose Date Time Vancomycin Load Dose: 2000MG Date: 08-27 Time: 2300 Vancomycin Dose Date: 08/27/16. Current Vancomycin Dose: [1000MG Q8H] Intermittent Dosing?: No Labs Labs Item Value Date Time White Blood Count 7.0 K/mm3 08/27/161836 Creatinine 0.99 MG/DL 08/27/161836 Blood Urea Nitrogen 21 MG/DL H 08/27/161836 Micro Microbiology 08/27/16 Blood Culture, Received Pending 08/27/16 Gram Stain, Received Pending 08/27/16 Sputum Culture, Received Pending Creatinine Clearance Date:08/27/16. Creatinine Clearance: [82]. Pending Labs Trough 08-28 @2100 Assessment and Plan Maintaining Current Dose?: Yes Reason for dose change: No Dose Change Pharmacist Note Pharmacist Note Date: 08/27/16. Pharmacist note:Dosed at 1000mg q8h with a trough ordered for @2100. Will continue to monitor and make adjustments as needed. MULU INIGUE[facility] Aug 27, 2016 23:16
[2016-08-27] MEDS: ASPIRIN 81 MG ENTERIC TAB PO SCH (23:38)
[2016-08-27] MEDS: guaiFENesin ER 600 MG TAB PO SCH (23:38)
[2016-08-27] MEDS: SIMVASTATIN 20 MG TAB PO SCH (23:39)
[2016-08-27] MEDS: VITAMIN D 1,000 INTERNATIONAL UNITS TABLET PO SCH (23:39)
[2016-08-27] MEDS: HEPARIN SOD (PORCINE) 5000 UNITS/ML VIAL SC SCH (23:39)
[2016-08-27] MEDS: SENOKOT S TAB PO SCH (23:39)
[2016-08-27] MEDS: VITAMIN B COMPLEX/VIT C CAP PO SCH (23:39)
[2016-08-28] MEDS: VANCOMYCIN HCL 1,000 MG, VIAL MATE ADAPTER 1 EACH in D5W 250 ML IV SCH ×2 (01:13→08:51)
[2016-08-28] MEDS: IPRATROPIUM 0.5MG/ALBUTEROL 2.5MG INH SOL UD 3ML (DUONEB)(J7620) NEB SCH ×4 (01:30→20:30)
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
[2016-08-28 05:49] VITALS: BP 154/88
[2016-08-28 06:35] VITALS: BP 154/88
[2016-08-28 06:43] LABS: MEAN CORPUSCULAR HEMOGLOBIN 34.1 pg (27.0-33.0); MEAN CORPUSCULAR HGB CONC 33.7 g/dl (32.0-36.5); MEAN CORPUSCULAR VOLUME 101.1 fl (80.0-96.0); WHITE BLOOD COUNT 6.6 K/mm3 (4.0-10.0)
[2016-08-28 07:01] LABS: ANION GAP 7 MEQ/L (8-16); BLOOD UREA NITROGEN 20 MG/DL (7-18); CALCIUM LEVEL 8.7 MG/DL (8.8-10.2); CARBON DIOXIDE LEVEL 25 MEQ/L (21-32); CHLORIDE LEVEL 106 MEQ/L (98-107); CREATININE FOR GFR 0.94 MG/DL (0.70-1.30); GLOMERULAR FILTRATION RATE > 60.0 (>49); GLUCOSE, FASTING 152 MG/DL (80-110); MAGNESIUM LEVEL 2.1 MG/DL (1.8-2.4); POTASSIUM SERUM 4.5 MEQ/L (3.5-5.1); SODIUM LEVEL 138 MEQ/L (136-145)
[2016-08-28] MEDS ORDERED: PREVNAR 13 VACCINE SYRINGE (CPT CODE:90670) IM SCH (07:45)
[2016-08-28 07:55] VITALS: BP 137/81
[2016-08-28] MEDS: guaiFENesin ER 600 MG TAB PO SCH ×2 (08:43→20:54)
[2016-08-28] MEDS: KETOROLAC 30 MG/ML VIAL (J1885) IV SCH ×3 (08:43→20:53)
[2016-08-28] MEDS: SENOKOT S TAB PO SCH ×2 (08:43→20:53)
[2016-08-28] MEDS: VITAMIN B COMPLEX/VIT C CAP PO SCH ×2 (09:00→20:53)
[2016-08-28] MEDS ORDERED: CEFEPIME HCL 2 GM in D5W MINI-BAG PLUS 50 ML IV SCH (10:00)
[2016-08-28] MEDS: HEPARIN SOD (PORCINE) 5000 UNITS/ML VIAL SC SCH ×2 (10:09→21:02)
[2016-08-28] MEDS: VITAMIN D 1,000 INTERNATIONAL UNITS TABLET PO SCH ×2 (10:09→20:54)
[2016-08-28 12:00] VITALS: BP 146/65
[2016-08-28 16:00] VITALS: BP 122/66
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
[2016-08-28 20:00] VITALS: BP 137/71
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
[2016-08-28] MEDS: ASPIRIN 81 MG ENTERIC TAB PO SCH (20:54)
[2016-08-28] MEDS: SIMVASTATIN 20 MG TAB PO SCH (20:54)
[2016-08-28] MEDS ORDERED: AZITHROMYCIN INJ 500 MG, VIAL MATE ADAPTER 1 EACH in D5W 250 ML IV SCH (21:00)
[2016-08-29 01:00] VITALS: BP 128/64
[2016-08-29] MEDS: KETOROLAC 30 MG/ML VIAL (J1885) IV SCH ×2 (01:07→07:58)
[2016-08-29] MEDS: IPRATROPIUM 0.5MG/ALBUTEROL 2.5MG INH SOL UD 3ML (DUONEB)(J7620) NEB SCH ×2 (01:59→07:40)
--- NOTE | 2016-08-29 04:46 | ECGEPIP ---
Stationary ECG Study [facility] - ED Test Date: 2016-08-27 Pat Name: VICKIE FAYE Department: Room: [place] [address] Gender: M Dredgemaster: gloria : 1950 Requested By: Rl Malik Order Number: [id number] Reading MD: Isaac Arndt Measurements Intervals [place] Rate: 85 P: 27 FL: 162 QRS: -36 QRSD: 93 T: 74 QT: 341 QTc: 407 Interpretive Statements SINUS RHYTHM WITH OCCASIONAL VENTRICULAR PREMATURE COMPLEXES LEFT AXIS DEVIATION LAFB LEFT VENTRICULAR HYPERTROPHY SIMILAR TO 08/20/16 Electronically Signed On 08-29-2016 4:45:51 EDT by Isaac Arndt
[2016-08-29 05:00] VITALS: BP 127/69
[2016-08-29 05:10] LABS: MEAN CORPUSCULAR HGB CONC 32.5 g/dl (32.0-36.5); MEAN CORPUSCULAR VOLUME 101.6 fl (80.0-96.0); RED CELL DISTRIBUTION WIDTH 12.8 % (11.5-14.5); WHITE BLOOD COUNT 6.8 K/mm3 (4.0-10.0)
[2016-08-29 05:21] LABS: ANION GAP 7 MEQ/L (8-16); BLOOD UREA NITROGEN 24 MG/DL (7-18); CALCIUM LEVEL 8.2 MG/DL (8.8-10.2); CARBON DIOXIDE LEVEL 28 MEQ/L (21-32); CHLORIDE LEVEL 109 MEQ/L (98-107); CREATININE FOR GFR 0.87 MG/DL (0.70-1.30); GLOMERULAR FILTRATION RATE > 60.0 (>49); GLUCOSE, FASTING 89 MG/DL (80-110); MAGNESIUM LEVEL 1.9 MG/DL (1.8-2.4); POTASSIUM SERUM 4.4 MEQ/L (3.5-5.1); SODIUM LEVEL 144 MEQ/L (136-145)
--- NOTE | 2016-08-29 07:49 | REP ---
Clinical: Shortness of breath. Comparison: 08/25/2016 and 08:49 p.m. Findings: Increased interstitial markings suggest the possibility of pulmonary vascular congestion along with bibasilar atelectasis and moderate left pleural effusion. Findings are similar to prior examination. Impression: Bibasilar atelectasis and left lower lobe consolidation with left pleural effusion similar to prior examination. Cannot exclude associated interstitial edema. Signed by Yasmany Payton MD 08/29/2016 07:41 A
[2016-08-29] MEDS ORDERED: SENN1TAB2 PO (07:59)
[2016-08-29] MEDS ORDERED: GUAI60TA PO (07:59)
[2016-08-29 08:00] VITALS: BP 156/79
[2016-08-29] MEDS: VITAMIN D 1,000 INTERNATIONAL UNITS TABLET PO SCH (08:36)
[2016-08-29] MEDS: VITAMIN B COMPLEX/VIT C CAP PO SCH (08:37)
[2016-08-29] MEDS: guaiFENesin ER 600 MG TAB PO SCH (08:37)
[2016-08-29] MEDS: SENOKOT S TAB PO SCH (08:37)
[2016-08-29] MEDS: HEPARIN SOD (PORCINE) 5000 UNITS/ML VIAL SC SCH (10:00)
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
[2016-08-30] MEDS ORDERED: fentaNYL 25 MCG/HR PATCH TD SCH (09:00)
== END 2016-08-29 11:55 | disposition home or self-care (01) | DRG 206 ==
LOC: EDBD 17:37 → M ED 18:32 → M ED INP 21:52 → M ICU 08-28 05:27
PROVIDERS: ADMIT Hospitalist; ATTEND Internal Medicine Nephrology
DX: J98.11 Atelectasis (principal); J90 Pleural effusion, not elsewhere classified; J44.9 Chronic obstructive pulmonary disease, unspecified; I25.10 Atherosclerotic heart disease of native coronary artery without angina pectoris; E78.5 Hyperlipidemia, unspecified; M54.5 Low back pain; I73.9 Peripheral vascular disease, unspecified; Z79.82 Long term (current) use of aspirin; Z79.899 Other long term (current) drug therapy; Z85.51 Personal history of malignant neoplasm of bladder; Z86.718 Personal history of other venous thrombosis and embolism; F17.200 Nicotine dependence, unspecified, uncomplicated

== ENCOUNTER → 2016-09-14 | Outpatient (CLI) | payer OTHER ==
[~2016-09-14] MED LIST changes: +FENT25PA TD; +GUAI60TA PO; +PERC5TAB6 PO; +SENN1TAB2 PO
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
== END ==
LOC: M SMT 10:45
PROVIDERS: ATTEND Thoracic Surgery (Cardiothoracic Vascular Surgery)
DX: S22.42XS Multiple fractures of ribs, left side, sequela (principal); V23.4XXS Motorcycle driver injured in collision with car, pick-up truck or van in traffic accident, sequela; S27.329S Contusion of lung, unspecified, sequela

== ENCOUNTER → 2017-03-06 | Outpatient (CLI) | payer OTHER ==
[~2017-03-06] MED LIST changes: -GUAI60TA PO; +MUCI600T31 PO; +PERC5TAB12 PO; -PERC5TAB6 PO
--- NOTE | 2017-03-06 20:42 | REP ---
CT LEFT SHOULDER WITHOUT CONTRAST: 03/06/2017. Clinical history: Prior left clavicle fracture. Evaluate for possible nonunion. Comparison: Acute fracture series 08/20/2016. Findings: Axial images with coronal and sagittal reconstructions provided. The mid shaft fracture of the left clavicle is noted. There is a more than full shaft width inferior displacement of the lateral fragment. Large callus formation at both ends of the fracture are noted but there appears to be a fibrous and not solid bony union at this time. The AC joint is intact with only small spurs inferiorly. Glenohumeral joint shows no subluxation or dislocation. There is an old healed fracture of the left 3rd rib in the mid axillary line. Lung apices were clear. Soft tissues about the shoulder grossly intact. Impression: 1. Mid shaft clavicular fracture with fibrous union. Large amount of callous but no bridging callus with solid healed fracture site. Signed by Nabil Apodaca MD 03/08/2017 11:08 A
== END ==
LOC: M RAD 17:49
PROVIDERS: ATTEND Orthopaedic Surgery
DX: S42.022D Displaced fracture of shaft of left clavicle, subsequent encounter for fracture with routine healing (principal); X58.XXXD Exposure to other specified factors, subsequent encounter; Y92.9 Unspecified place or not applicable

== ENCOUNTER 2017-05-23 10:43 | Day surgery (SDC) | payer OTHER ==
[2017-05-23] MEDS ORDERED: NS 1,000 ML IV (11:15)
[2017-05-23] MEDS ORDERED: PROPOFOL 200 MG/20 ML VIAL As Ordered ×2 (12:14→12:23)
[2017-05-23] MEDS ORDERED: LIDOCAINE 2% INJ 100 MG/5 ML SDV (FOR ANES.) As Ordered (12:14)
== END 2017-05-23 13:10 | disposition home or self-care (01) ==
LOC: M OPP 10:43
DX: Z12.11 Encounter for screening for malignant neoplasm of colon (principal); K64.0 First degree hemorrhoids; K62.1 Rectal polyp; D12.3 Benign neoplasm of transverse colon; D12.4 Benign neoplasm of descending colon; Z86.010 Personal history of colon polyps; E78.5 Hyperlipidemia, unspecified; I71.3 Abdominal aortic aneurysm, ruptured; I73.9 Peripheral vascular disease, unspecified; K44.9 Diaphragmatic hernia without obstruction or gangrene; M51.9 Unspecified thoracic, thoracolumbar and lumbosacral intervertebral disc disorder; M48.00 Spinal stenosis, site unspecified; J44.9 Chronic obstructive pulmonary disease, unspecified; N40.0 Benign prostatic hyperplasia without lower urinary tract symptoms; F17.210 Nicotine dependence, cigarettes, uncomplicated; Z79.82 Long term (current) use of aspirin; Z79.899 Other long term (current) drug therapy; Z86.718 Personal history of other venous thrombosis and embolism; Z95.820 Peripheral vascular angioplasty status with implants and grafts
CPT/HCPCS: 45385

== ENCOUNTER → 2018-09-11 | Outpatient (REF) | payer OTHER, MEDICARE ==
[~2018-09-11] MED LIST changes: -ASPI1TAB PO; +ASPI81TA26 PO; +FENT25DI33 TD; +FENT25DI33 TOP; -FENT25PA TD; -FENT25PA TOP; -SENN1TAB2 PO; +SENN1TAB40 PO
[2018-09-11 16:54] LABS: BLOOD UREA NITROGEN 15 MG/DL (7-18); CALCIUM LEVEL 8.4 MG/DL (8.8-10.2); CARBON DIOXIDE LEVEL 28 MEQ/L (21-32); CHLORIDE LEVEL 111 MEQ/L (98-107); GLOMERULAR FILTRATION RATE > 60.0 (>49); GLUCOSE, FASTING 115 MG/DL (70-100); SODIUM LEVEL 143 MEQ/L (136-145)
[2018-09-11 17:04] LABS: BASO % 0.6 % (0.0-1.0); EOS # 0.1 10^3/uL (0.0-0.50); EOS % 1.8 % (0.0-3.0); HEMATOCRIT 43.5 % (42.0-52.0); HEMOGLOBIN 14.4 g/dl (13.5-17.5); LYMPH # 2.3 10^3/uL (1.5-4.5); LYMPH % 31.7 % (24.0-44.0); MEAN CORPUSCULAR HEMOGLOBIN 33.3 pg (27.0-33.0); MEAN CORPUSCULAR HGB CONC 33.1 g/dl (32.0-36.5); MEAN CORPUSCULAR VOLUME 100.5 fl (80.0-96.0); MONO # 0.7 10^3/uL (0.0-0.8); MONO % 9.8 % (0.0-5.0); NEUTROPHILS % 55.8 % (36.0-66.0); PLATELET COUNT, AUTOMATED 159 10^3/uL (150-450); RED BLOOD COUNT 4.33 10^6/uL (4.30-6.10); WHITE BLOOD COUNT 7.2 10^3/uL (4.0-10.0)
[2018-09-11 17:11] LABS: INR 0.93; PROTHROMBIN TIME 12.6 SECONDS (12.1-14.4)
[2018-09-11 17:12] LABS: PARTIAL THROMBOPLASTIN TIME 31.8 SECONDS (25.4-37.6)
== END ==
LOC: M LABDRAW1 13:12
PROVIDERS: ATTEND Surgery Vascular Surgery
DX: Z01.818 Encounter for other preprocedural examination (principal); D69.8 Other specified hemorrhagic conditions

== ENCOUNTER → 2019-02-12 | Outpatient (REF) | payer OTHER, MEDICARE ==
[2019-02-12 16:55] LABS: PLATELET COUNT, AUTOMATED 178 10^3/uL (150-450)
[2019-02-12 17:05] LABS: INR 1.06; PROTHROMBIN TIME 13.5 SECONDS (11.8-14.0)
[2019-02-12 17:06] LABS: PARTIAL THROMBOPLASTIN TIME 29.8 SECONDS (25.0-38.4)
== END ==
LOC: M LABDRAW1 15:32
PROVIDERS: ATTEND Physician Assistant
DX: Z01.812 Encounter for preprocedural laboratory examination (principal); M47.27 Other spondylosis with radiculopathy, lumbosacral region

== ENCOUNTER → 2019-03-26 | Outpatient (REF) | payer OTHER ==
[~2019-03-26] MED LIST changes: +SENN-53 PO; -SENN1TAB40 PO
[2019-03-26 18:42] LABS: FREE T4 1.15 NG/DL (0.76-1.46); RHEUMATOID FACTOR QUANT < 10.0 IU/ML (<15.0); TOTAL PROTEIN 7.3 GM/DL (6.4-8.2)
[2019-03-26 18:44] LABS: FOLATE > 24.0 NG/ML; VITAMIN B12 LEVEL 629 PG/ML
[2019-03-26 18:56] LABS: HEMOGLOBIN A1c 5.6 %
[2019-03-27 11:13] LABS: ALBUMIN 4.43 GM/DL (3.29-5.55); ALBUMIN % 60.7 % (55.8-66.1); ALPHA-1-GLOBULIN % 4.3 % (2.9-4.9); ALPHA-1-GLOBULINS 0.31 GM/DL (0.17-0.41); ALPHA-2-GLOBULINS 0.91 GM/DL (0.42-0.99); ALPHA-2-GLOBULINS % 12.5 % (7.1-11.8); BETA-1-GLOBULINS 0.45 GM/DL (0.28-0.60); BETA-1-GLOBULINS % 6.2 % (4.7-7.2); BETA-2-GLOBULINS 0.36 GM/DL (0.19-0.55); BETA-2-GLOBULINS % 4.9 % (3.2-6.5); GAMMA GLOBULIN % 11.4 % (11.1-18.8)
[2019-03-27 11:14] LABS: GAMMA GLOBULINS 0.83 GM/DL (0.65-1.58)
== END ==
LOC: M LABNEURO 14:34
PROVIDERS: ATTEND Psychiatry & Neurology Neurology
DX: G90.09 Other idiopathic peripheral autonomic neuropathy (principal); E07.9 Disorder of thyroid, unspecified; E11.9 Type 2 diabetes mellitus without complications

== ENCOUNTER → 2019-04-04 | Outpatient (CLI) | payer OTHER ==
--- NOTE | 2019-04-04 15:43 | REP ---
MRI lumbar spine: 04/04/2019. Indication: Low back pain. Comparison: None. Technique: Thick planar short and long TR sequences of the lumbar spine were obtained without IV Gadolinium. Findings: There is mild straightening of the lumbar lordosis. No worrisome marrow signal is present. The visualized cord is normal. Disc desiccation and mild disc space narrowing are present throughout. The infrarenal a aorta is dilated with the cross-sectional diameter measuring 3.2 cm. L1/L2: Mild disc bulge and bilateral facet arthropathy are present with out significant spinal canal or neural foraminal narrowing. L2/L3: Diffuse disc and spur complex and bilateral facet arthropathy are present with moderate to severe left and moderate right recess narrowing. Moderate bilateral neural foraminal narrowing is present. L3/L4: Diffuse disc and spur complex and bilateral facet arthropathy are present with severe bilateral recess narrowing. Moderate bilateral neural foraminal narrowing is present. L4/L5: There is an asymmetric disc bulge and left greater than right facet arthropathy with severe left recess and moderate to severe left neural foraminal narrowing. There is moderate to severe right recess narrowing. Moderate right neural foraminal narrowing is present. L5/S1: Diffuse disc bulge is present with moderate left recess narrowing. There is moderate to severe left and moderate right neural foraminal narrowing. 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 Electronically Signed by Vincent Plaza DO 04/04/2019 03:34 P
== END ==
LOC: M PLARAD 13:28
PROVIDERS: ATTEND Psychiatry & Neurology Neurology
DX: M25.78 Osteophyte, vertebrae (principal); M51.26 Other intervertebral disc displacement, lumbar region; M51.27 Other intervertebral disc displacement, lumbosacral region; M48.062 Spinal stenosis, lumbar region with neurogenic claudication

== ENCOUNTER → 2019-07-05 | Outpatient (CLI) | payer OTHER ==
[~2019-07-05] MED LIST changes: -SIMV20TA2 PO; +SIMV20TA22 PO
--- NOTE | 2019-07-07 17:04 | REP ---
MRI left shoulder without contrast: History: Pain in the left shoulder. Comparison radiographs left shoulder from August 20, 2016. Comparison left shoulder CT study March 06, 2017. There is a comparison CT study of the left shoulder from [facility] dated June 13, 2019. CT study show an overriding old fracture of the left clavicle with incomplete bony union. Technique: Axial, oblique coronal and oblique sagittal imaging planes utilized. T1, proton density T2-weighted scans were obtained. MRI findings: The glenohumeral and acromioclavicular joints are normally aligned. There is moderate osteoarthritic hypertrophy at the acromioclavicular joint, particularly along its superior aspect. There is mild inferolateral spurring of the acromion process. There is a small subacromial subdeltoid bursal effusion. There is tendonitis tendinosis change in the distal supraspinatus tendon on oblique coronal T1-weighted scans. No focal or full-thickness supraspinatus cuff tear is seen. The infraspinatus and subscapularis tendons appear intact. Biceps tendon is in the bony bicipital groove. No anterior or posterior labral cartilage tear is seen. There is some chondromalacia in the glenohumeral articulation diffusely, mild in degree. Impression: Diffuse tendonitis tendinosis change in the supraspinatus. No focal cuff tear. Subacromial subdeltoid bursal effusion. AC joint osteoarthritis and acromion process spurring noted. Mild glenohumeral chondromalacia. Electronically Signed by Vernon Funk MD 07/07/2019 06:20 P
== END ==
LOC: M RAD 10:31
PROVIDERS: ATTEND Orthopaedic Surgery Sports Medicine
DX: M25.512 Pain in left shoulder (principal)

== ENCOUNTER → 2019-10-25 | Outpatient (CLI) | payer OTHER ==
[~2019-10-25] MED LIST changes: +ANOR1AER INH; +CLAR10CA3 PO; +CLOP75TA2 PO; +PANT40TA3 PO; +VITAD1000T PO; +VITATAB73 PO
== END ==
LOC: M LABSMTC 08:14
PROVIDERS: ATTEND Anesthesiology
DX: Z03.818 Encounter for observation for suspected exposure to other biological agents ruled out (principal); Z11.59 Encounter for screening for other viral diseases
CPT/HCPCS: C9803; U0003

== ENCOUNTER 2019-10-28 06:16 | Day surgery (SDC) | payer OTHER ==
[~2019-10-28] VITALS: Ht 185.4 cm; Wt 103.4 kg
[~2019-10-28 06:16] MED LIST changes: +LR 1,000 ML IV ONE
[2019-10-28 06:58] LABS: HEMOGLOBIN 15.1 g/dl (13.5-17.5); MEAN CORPUSCULAR HEMOGLOBIN 34.5 pg (27.0-33.0); MEAN CORPUSCULAR HGB CONC 33.6 g/dl (32.0-36.5); MEAN CORPUSCULAR VOLUME 102.7 fl (80.0-96.0); PLATELET COUNT, AUTOMATED 152 10^3/uL (150-450); RED BLOOD COUNT 4.38 10^6/uL (4.30-6.10); WHITE BLOOD COUNT 7.2 10^3/uL (4.0-10.0)
[2019-10-28] MEDS ORDERED: ceFAZolin 2 GM/D5W 50 ML IV BAG (J0690 PER 500MG) As Ordered ONE (07:03)
[2019-10-28] MEDS ORDERED: LIDOCAINE 2% 100MG/5ML SDV (FOR ANES.) As Ordered ONE (07:09)
[2019-10-28] MEDS ORDERED: fentaNYL 100 MCG/2 ML INJECTION (J3010) As Ordered ONE (07:09)
[2019-10-28] MEDS ORDERED: ONDANSETRON 4MG/2ML VIAL As Ordered ONE (07:09)
[2019-10-28] MEDS ORDERED: propofoL 200 MG/20 ML VIAL As Ordered ONE (07:09)
[2019-10-28] MEDS ORDERED: dexameTHASONE 4 MG/ML 1ML VIAL (J1100 PER 1MG) As Ordered ONE (07:09)
[2019-10-28 07:19] LABS: BLOOD UREA NITROGEN 15 MG/DL (7-18); CALCIUM LEVEL 8.4 MG/DL (8.8-10.2); CARBON DIOXIDE LEVEL 28 MEQ/L (21-32); CHLORIDE LEVEL 112 MEQ/L (98-107); CREATININE FOR GFR 1.08 MG/DL (0.70-1.30); GLOMERULAR FILTRATION RATE > 60.0 (>42); GLUCOSE, FASTING 94 MG/DL (70-100); SODIUM LEVEL 144 MEQ/L (136-145)
[2019-10-28] MEDS ORDERED: MIDAZOLAM INJ 2MG/2ML VIAL (J2250 PER 1MG) As Ordered ONE (07:29)
[2019-10-28] MEDS ORDERED: ceFAZolin SOD 2 GM in IV 1 EA IV ONE (07:30)
[2019-10-28] MEDS ORDERED: BUPIVACAINE/EPIN 0.25% 30 ML VIAL As Ordered ONE (07:36)
[2019-10-28] MEDS ORDERED: KETOROLAC 60MG 2ML VIAL As Ordered ONE (08:40)
[2019-10-28] MEDS ORDERED: HYDROMORPHONE HCL 0.5 MG/ 0.5 ML SYRINGE (J1170 PER 1) IV PRN (09:15)
[2019-10-28] MEDS ORDERED: PERCOCET 5MG/325MG TAB PO PRN (09:15)
[2019-10-28] MEDS ORDERED: MORPHINE 2 MG/ML 1ML VIAL (J2270) IV PRN (09:15)
[2019-10-28] MEDS ORDERED: ACETAMINOPHEN TAB 650MG DOSE (2X325MG) PO PRN (09:15)
[2019-10-28] MEDS ORDERED: LR 1,000 ML IV SCH (09:15)
[2019-10-28] MEDS ORDERED: oxyCODONE 5MG TAB PO PRN (09:15)
[2019-10-28] MEDS ORDERED: fentaNYL 100 MCG/2 ML INJECTION (J3010) IV PRN (09:15)
[2019-10-28] MEDS ORDERED: ONDANSETRON 4MG/2ML VIAL IV PRN ×2 (09:15)
[2019-10-28 10:00] VITALS: BP 140/72
--- NOTE | 2019-10-28 14:06 | RO ---
DATE OF SURGERY: 10/28/2019 PREOPERATIVE DIAGNOSIS: Left elbow cubital tunnel syndrome. POSTOPERATIVE DIAGNOSIS: Left elbow cubital tunnel syndrome. PLANNED PROCEDURE: Left elbow cubital tunnel release. PROCEDURE PERFORMED: Left elbow cubital tunnel release. SURGEON: Crispin Marina MD METAL CANS SUPERVISOR: SALES MERCHANDISE ASSOCIATE: Dr. Warren TYPE OF ANESTHETIC: General anesthetic. OPERATIVE PREAMBLE: This 69-year-old man had signs and symptoms consistent with left elbow cubital tunnel syndrome. We discussed the pros, cons, risks, benefits of going ahead with left elbow cubital tunnel release. He wished to go ahead. I marked the upper extremity and proceeded to surgery. OPERATIVE REPORT: The patient was brought to the operating theater. They were placed supine on the operating room table. General anesthesia was induced. Two grams of intravenous (IV) Ancef was administered. Hand table was used to the patient's left side. All bony prominences appropriately padded. Tourniquet was used in the left upper extremity and the 18-inch tourniquet appropriately padded. Sequential compression devices (SCDs) were used on down leg. The limb was prepped in the usual sterile fashion, allowing over 3 minutes prep solution drying time. Preoperative time-out was performed to confirm the site, the patient, and the surgery. I began by exsanguinate the limb with sterile Esmarch, elevating the limb, inflated the tourniquet to 250 mmHg. I removed the Esmarch bandage. I made a curved incision centered over the cubital tunnel on the medial side of the elbow. I carried dissection down through skin and subcutaneous tissue to achieve good hemostasis. I identified the ulnar nerve proximally. I released this at the media intermuscular septum proximally. I then followed this distally. I released the flexor carpi ulnaris (FCU) fascia, as well as Nelson ligament overlying the cubital tunnel. I released the nerve distally through the two heads of FCU. There was no obvious medial epicondyle or olecranon spurs. Ulnar sat in the groove nicely. No subluxation with elbow range of motion. No clicking or catching or other impinging structures on the nerve. Full neurolysis was then performed proximally and distally. Some small capsular branches of the nerve were ligated. The wound was thoroughly irrigated. I took down the tourniquet. Bleeding was meticulously hemostased. Subcutaneous tissue was closed interrupted 2-0 Vicryl sutures and skin with running 3-0 Monocryl. The skin was cleaned with wet and dry dressings. 10 mL of 0.25% Marcaine with 1:100,000 epinephrine was instilled in and around the incision site. Steri-Strips were applied. Adaptic, 4 x 8 gauze, and ABD dressing were then applied to the wound and overwrapped with sterile 4-inch Jonh bandages. The patient's upper left extremity was placed into a sling. The patient was woken up from the general anesthetic, transferred off the operating room table, and taken to the postanesthetic care unit in stable condition. All sponge, needle, and instrument counts were correct. No complications. Estimated blood loss 25 mL. The plan for the patient is to start immediate gentle range of motion of the elbow. No heavy lifting or gripping. Followup in the office in 2 weeks' time. They will be discharged home according to day surgery criteria. Prescription will be sent to their pharmacy of choice electronically. They must keep the wound clean and dry for 14 days. However, they can change the dressing postoperative day #2 or wait until they see me in followup in clinic.
--- NOTE | 2019-10-28 17:29 | ECGEPIP ---
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
== END 2019-10-28 10:17 | disposition home or self-care (01) ==
LOC: M SDC 06:16
PROVIDERS: ATTEND Orthopaedic Surgery Sports Medicine
DX: G56.22 Lesion of ulnar nerve, left upper limb (principal); I71.4 Abdominal aortic aneurysm, without rupture; I25.10 Atherosclerotic heart disease of native coronary artery without angina pectoris; E78.5 Hyperlipidemia, unspecified; I73.9 Peripheral vascular disease, unspecified; K44.9 Diaphragmatic hernia without obstruction or gangrene; D64.9 Anemia, unspecified; J44.9 Chronic obstructive pulmonary disease, unspecified; Z79.02 Long term (current) use of antithrombotics/antiplatelets; Z79.899 Other long term (current) drug therapy; F17.218 Nicotine dependence, cigarettes, with other nicotine-induced disorders; Z86.718 Personal history of other venous thrombosis and embolism; Z85.51 Personal history of malignant neoplasm of bladder
CPT/HCPCS: 36415; 64718; 80048; 85027; 93005; J0690; J1100; J1885; J2250; J2405; J3010

== ENCOUNTER → 2019-12-16 | Outpatient (CLI) | payer OTHER ==
[~2019-12-16] MED LIST changes: +D31000TA2 PO; -LR 1,000 ML IV ONE; +PANT40TA29 PO; -PANT40TA3 PO; -VITAD1000T PO
== END ==
LOC: M RAD 12:25
PROVIDERS: ATTEND Orthopaedic Surgery
DX: Z53.9 Procedure and treatment not carried out, unspecified reason (principal)

== ENCOUNTER → 2020-03-31 | Outpatient (CLI) | payer SELFPAY | LOC: M LABSMTC 14:03 | PROVIDERS: ATTEND Pediatrics | DX: Z20.828 Contact with and (suspected) exposure to other viral communicable diseases (principal) ==

== ENCOUNTER → 2020-09-16 | Outpatient (CLI) | payer OTHER, MEDICARE ==
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
== END ==
LOC: M PAIN 08:30
PROVIDERS: ATTEND Family Medicine
DX: M51.17 Intervertebral disc disorders with radiculopathy, lumbosacral region (principal); J44.9 Chronic obstructive pulmonary disease, unspecified; F17.210 Nicotine dependence, cigarettes, uncomplicated; Z79.51 Long term (current) use of inhaled steroids; Z79.82 Long term (current) use of aspirin; Z79.899 Other long term (current) drug therapy

== ENCOUNTER → 2020-09-30 | Outpatient (CLI) | payer OTHER, MEDICARE | LOC: M LABSMTC 13:05 | PROVIDERS: ATTEND Anesthesiology | DX: Z20.822 Contact with and (suspected) exposure to COVID-19 (principal) ==

== ENCOUNTER → 2020-10-05 | Outpatient (CLI) | payer OTHER, MEDICARE ==
[~2020-10-05] MED LIST changes: +ISOVUE-M 300 61% 15ML VIAL As Ordered ONE; +LIDOCAINE 1% SDV 30ML VIAL As Ordered ONE; +methylPREDNISolone SUSP 40MG/ML 1ML VIAL (DEPO MEDROL) As Ordered ONE
--- NOTE | 2020-10-05 12:53 | REP ---
INDICATION: LUMBAR EPIDURAL. COMPARISON: None. TECHNIQUE: Intraoperative fluoroscopic imaging using portable C-arm technique. FINDINGS: Catheter and contrast overlie the lumbar epidural space. Total fluoroscopic time 16.4 seconds. IMPRESSION: Findings consistent with lumbar epidural injection. <Electronically signed by Yasmany Payton > 10/05/20 1245
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
== END ==
LOC: M PAIN 10:00
PROVIDERS: ATTEND Anesthesiology
DX: M51.16 Intervertebral disc disorders with radiculopathy, lumbar region (principal); J44.9 Chronic obstructive pulmonary disease, unspecified; F17.210 Nicotine dependence, cigarettes, uncomplicated; Z79.51 Long term (current) use of inhaled steroids; Z79.82 Long term (current) use of aspirin; Z79.899 Other long term (current) drug therapy
CPT/HCPCS: 62323; J1030; Q9967

== ENCOUNTER → 2020-10-19 | Outpatient (CLI) | payer OTHER, MEDICARE ==
[~2020-10-19] MED LIST changes: -ISOVUE-M 300 61% 15ML VIAL As Ordered ONE; -LIDOCAINE 1% SDV 30ML VIAL As Ordered ONE; -methylPREDNISolone SUSP 40MG/ML 1ML VIAL (DEPO MEDROL) As Ordered ONE
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
== END ==
LOC: M PAIN 14:15
PROVIDERS: ATTEND Family Medicine
DX: M51.17 Intervertebral disc disorders with radiculopathy, lumbosacral region (principal); G89.29 Other chronic pain; J44.9 Chronic obstructive pulmonary disease, unspecified; Z79.51 Long term (current) use of inhaled steroids; Z79.82 Long term (current) use of aspirin; Z79.899 Other long term (current) drug therapy

== ENCOUNTER → 2020-12-15 | Outpatient (CLI) | payer OTHER, MEDICARE ==
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
== END ==
LOC: M PAIN 13:45
PROVIDERS: ATTEND Family Medicine
DX: M51.17 Intervertebral disc disorders with radiculopathy, lumbosacral region (principal); G89.29 Other chronic pain; J44.9 Chronic obstructive pulmonary disease, unspecified; F17.210 Nicotine dependence, cigarettes, uncomplicated; Z79.51 Long term (current) use of inhaled steroids; Z79.82 Long term (current) use of aspirin; Z79.899 Other long term (current) drug therapy

== ENCOUNTER → 2021-04-06 | Outpatient (CLI) | payer OTHER, MEDICARE ==
--- NOTE | 2021-04-06 14:22 | REP ---
INDICATION: OTHER SPECIFIED CONGENITAL MUSCULOSKELETAL DEFORMITIES. COMPARISON: A cyst 06/28/2018 from an outside institution TECHNIQUE: Two views of the left clavicle. FINDINGS: There is no change in appearance of the old left clavicle fracture. There is no evidence of an acute fracture. IMPRESSION: No significant change <Electronically signed by Roscoe Smart > 04/06/21 1415
--- NOTE | 2021-04-06 14:54 | REP ---
INDICATION: OTHER SPECIFIED CONGENITAL MUSCULOSKELETAL DEFORMITIES COMPARISON: None. TECHNIQUE: Internal rotation, external rotation, and Y view. FINDINGS: Old midclavicular shaft fracture with bulky heterotopic ossification at the fracture site is again noted. Multiple presumed old left rib fractures are identified. The acromioclavicular and glenohumeral joints are intact and normal. The subacromial space is normal. No overt degenerative joint changes are appreciated. IMPRESSION: The acromioclavicular and glenohumeral joints are intact and essentially normal. Old fractures involving the clavicle shaft and left ribs noted. <Electronically signed by Yasmany Payton > 04/06/21 [id number]
== END ==
LOC: M RAD 13:20
PROVIDERS: ATTEND Physician Assistant
DX: Q68.8 Other specified congenital musculoskeletal deformities (principal)

== ENCOUNTER → 2021-04-21 | Outpatient (CLI) | payer OTHER, MEDICARE | LOC: M PAIN 14:00 | PROVIDERS: ATTEND Anesthesiology | DX: M51.16 Intervertebral disc disorders with radiculopathy, lumbar region (principal); M48.062 Spinal stenosis, lumbar region with neurogenic claudication; G89.29 Other chronic pain; J44.9 Chronic obstructive pulmonary disease, unspecified; F17.210 Nicotine dependence, cigarettes, uncomplicated; Z79.51 Long term (current) use of inhaled steroids; Z79.82 Long term (current) use of aspirin; Z79.899 Other long term (current) drug therapy ==

== ENCOUNTER → 2021-05-20 | Outpatient (CLI) | payer OTHER, MEDICARE | LOC: M WUC 09:19 | PROVIDERS: ATTEND Family Medicine Adult Medicine | DX: Z11.1 Encounter for screening for respiratory tuberculosis (principal) ==

== ENCOUNTER → 2021-08-26 | Outpatient (CLI) | payer OTHER, MEDICARE ==
[~2021-08-26] MED LIST changes: -D31000TA2 PO; +VITA100093 PO
== END ==
LOC: M PLAIMG 15:31
PROVIDERS: ATTEND Anesthesiology
DX: M51.16 Intervertebral disc disorders with radiculopathy, lumbar region (principal); M48.062 Spinal stenosis, lumbar region with neurogenic claudication; M51.17 Intervertebral disc disorders with radiculopathy, lumbosacral region

== ENCOUNTER → 2021-09-21 | Outpatient (CLI) | payer OTHER, MEDICARE | LOC: M PAIN 10:15 | PROVIDERS: ATTEND Nurse Practitioner Family | DX: M51.16 Intervertebral disc disorders with radiculopathy, lumbar region (principal); G89.29 Other chronic pain; J44.9 Chronic obstructive pulmonary disease, unspecified; F17.210 Nicotine dependence, cigarettes, uncomplicated; Z79.51 Long term (current) use of inhaled steroids; Z79.82 Long term (current) use of aspirin; Z79.899 Other long term (current) drug therapy ==

== ENCOUNTER → 2021-12-16 | Outpatient (CLI) | payer OTHER, MEDICARE ==
[~2021-12-16] MED LIST changes: -GLUCTAB6 PO; +GLUCTAB7 PO
[2021-12-16 18:04] LABS: HEMATOCRIT 42.2 % (42.0-52.0); HEMOGLOBIN 14.1 g/dl (13.5-17.5); MEAN CORPUSCULAR HEMOGLOBIN 34.4 pg (27.0-33.0); MEAN CORPUSCULAR HGB CONC 33.4 g/dl (32.0-36.5); MEAN CORPUSCULAR VOLUME 102.9 fl (80.0-96.0); PLATELET COUNT, AUTOMATED 138 10^3/uL (150-450); WHITE BLOOD COUNT 6.5 10^3/uL (4.0-10.0)
[2021-12-16 19:12] LABS: BLOOD UREA NITROGEN 14 MG/DL (7-18); CARBON DIOXIDE LEVEL 27 MEQ/L (21-32); CHLORIDE LEVEL 107 MEQ/L (98-107); CREATININE FOR GFR 0.98 MG/DL (0.70-1.30); GLOMERULAR FILTRATION RATE > 60.0 (>42); GLUCOSE, FASTING 71 MG/DL (70-100); POTASSIUM SERUM 3.9 MEQ/L (3.5-5.1); SODIUM LEVEL 139 MEQ/L (136-145)
== END ==
LOC: M PLALAB 14:37
PROVIDERS: ATTEND Nurse Practitioner Family
DX: I42.8 Other cardiomyopathies (principal); R06.02 Shortness of breath

== ENCOUNTER → 2022-03-19 | Outpatient (CLI) | payer OTHER, MEDICARE | LOC: M LABSMTC 10:25 | PROVIDERS: ATTEND Anesthesiology | DX: Z20.828 Contact with and (suspected) exposure to other viral communicable diseases (principal); Z11.59 Encounter for screening for other viral diseases ==

== ENCOUNTER → 2022-05-22 | Outpatient (CLI) | payer OTHER, MEDICARE | LOC: M LABSMTC 11:30 | PROVIDERS: ATTEND Anesthesiology | DX: Z01.812 Encounter for preprocedural laboratory examination (principal); Z20.822 Contact with and (suspected) exposure to COVID-19 ==

== ENCOUNTER → 2022-06-15 | Outpatient (CLI) | payer OTHER, MEDICARE | LOC: M LABSMTC 09:50 | PROVIDERS: ATTEND Anesthesiology | DX: Z11.52 Encounter for screening for COVID-19 (principal) ==

== ENCOUNTER → 2022-06-20 | Outpatient (CLI) | payer OTHER, MEDICARE ==
[~2022-06-20] MED LIST changes: +ISOVUE-M 300 61% 15ML VIAL As Ordered ONE; +LIDOCAINE 1% SDV 30ML VIAL As Ordered ONE; +methylPREDNISolone SUSP 40MG/ML 1ML VIAL (DEPO MEDROL) As Ordered ONE
== END ==
LOC: M PAIN 10:00
PROVIDERS: ATTEND Anesthesiology
DX: M51.16 Intervertebral disc disorders with radiculopathy, lumbar region (principal); G89.29 Other chronic pain; J44.9 Chronic obstructive pulmonary disease, unspecified; F17.210 Nicotine dependence, cigarettes, uncomplicated; Z79.51 Long term (current) use of inhaled steroids; Z79.82 Long term (current) use of aspirin; Z79.899 Other long term (current) drug therapy
CPT/HCPCS: 62323; J1030

== ENCOUNTER → 2022-07-06 | Outpatient (CLI) | payer OTHER, MEDICARE ==
[~2022-07-06] MED LIST changes: -ISOVUE-M 300 61% 15ML VIAL As Ordered ONE; -LIDOCAINE 1% SDV 30ML VIAL As Ordered ONE; -methylPREDNISolone SUSP 40MG/ML 1ML VIAL (DEPO MEDROL) As Ordered ONE
== END ==
LOC: M PAIN 11:30
PROVIDERS: ATTEND Nurse Practitioner Family
DX: M51.16 Intervertebral disc disorders with radiculopathy, lumbar region (principal); G89.29 Other chronic pain; J44.9 Chronic obstructive pulmonary disease, unspecified; F17.210 Nicotine dependence, cigarettes, uncomplicated; Z79.51 Long term (current) use of inhaled steroids; Z79.82 Long term (current) use of aspirin; Z79.899 Other long term (current) drug therapy

== ENCOUNTER → 2022-08-30 | Outpatient (CLI) | payer OTHER | LOC: M RAD 06:41 | PROVIDERS: ATTEND Surgery Vascular Surgery | DX: I71.43 Infrarenal abdominal aortic aneurysm, without rupture (principal) ==

== ENCOUNTER → 2022-11-09 | Outpatient (CLI) | payer OTHER, MEDICARE | LOC: M PAIN 10:00 | PROVIDERS: ATTEND Nurse Practitioner Family | DX: M51.16 Intervertebral disc disorders with radiculopathy, lumbar region (principal); G89.29 Other chronic pain; J44.9 Chronic obstructive pulmonary disease, unspecified; F17.210 Nicotine dependence, cigarettes, uncomplicated; Z79.51 Long term (current) use of inhaled steroids; Z79.82 Long term (current) use of aspirin; Z79.899 Other long term (current) drug therapy ==

== ENCOUNTER → 2022-12-12 | Outpatient (CLI) | payer OTHER, MEDICARE ==
[~2022-12-12] MED LIST changes: +CURC500C PO; +ENTR1TAB PO; +EZET10TA21 PO; +GABA-284 PO; +JARD1TAB PO; +METO1TAB32 PO; +[UNRECOGNIZED DRUG - OTHER] PO
== END ==
LOC: M PAIN 11:30
PROVIDERS: ATTEND Nurse Practitioner Family
DX: M51.16 Intervertebral disc disorders with radiculopathy, lumbar region (principal); G89.29 Other chronic pain; J44.9 Chronic obstructive pulmonary disease, unspecified; F17.210 Nicotine dependence, cigarettes, uncomplicated; Z79.82 Long term (current) use of aspirin; Z79.84 Long term (current) use of oral hypoglycemic drugs; Z79.899 Other long term (current) drug therapy

== ENCOUNTER 2022-12-13 07:52 | Day surgery (SDC) | payer OTHER, MEDICARE ==
[~2022-12-13] VITALS: Ht 185.4 cm; Wt 96.3 kg
[~2022-12-13 07:52] MED LIST changes: +LIDOCAINE 2% 100MG/5ML SDV (FOR ANES.) As Ordered ONE; +NS 1,000 ML IV ONE; +propofoL 200 MG/20 ML VIAL As Ordered ONE
[2022-12-13] MEDS ORDERED: ePHEDrine SULFATE 25 MG/5 ML(5MG/ML) SYRINGE As Ordered ONE (09:40)
[2022-12-13 10:15] VITALS: BP 103/56; O2SAT 100
== END 2022-12-13 10:24 | disposition home or self-care (01) ==
LOC: M OPP 07:52
PROVIDERS: ATTEND Internal Medicine Gastroenterology
DX: Z12.11 Encounter for screening for malignant neoplasm of colon (principal); Z86.010 Personal history of colon polyps; D12.6 Benign neoplasm of colon, unspecified; K63.5 Polyp of colon; K64.0 First degree hemorrhoids; F17.200 Nicotine dependence, unspecified, uncomplicated; Z79.02 Long term (current) use of antithrombotics/antiplatelets; Z79.82 Long term (current) use of aspirin; Z79.83 Long term (current) use of bisphosphonates; Z79.891 Long term (current) use of opiate analgesic; Z79.899 Other long term (current) drug therapy

== ENCOUNTER → 2023-04-20 | Outpatient (CLI) | payer OTHER, MEDICARE ==
[~2023-04-20] MED LIST changes: -LIDOCAINE 2% 100MG/5ML SDV (FOR ANES.) As Ordered ONE; -NS 1,000 ML IV ONE; +PROA1AER2 INH; +SPIR-10 PO; -propofoL 200 MG/20 ML VIAL As Ordered ONE
== END ==
LOC: M PAIN 11:00
PROVIDERS: ATTEND Nurse Practitioner Family
DX: M51.16 Intervertebral disc disorders with radiculopathy, lumbar region (principal); G89.29 Other chronic pain; F17.210 Nicotine dependence, cigarettes, uncomplicated; Z80.8 Family history of malignant neoplasm of other organs or systems; Z79.82 Long term (current) use of aspirin; Z79.84 Long term (current) use of oral hypoglycemic drugs; Z79.899 Other long term (current) drug therapy

== ENCOUNTER 2023-04-23 11:20 | Day surgery (SDC) | payer MEDICARE, OTHER ==
[~2023-04-23] VITALS: Ht 185.4 cm; Wt 100.6 kg
[~2023-04-23 11:20] MED LIST changes: +NS 1,000 ML IV ONE
[2023-04-23] MEDS ORDERED: LIDOCAINE 2% 100MG/5ML SDV (FOR ANES.) As Ordered ONE (12:46)
[2023-04-23] MEDS ORDERED: propofoL 200 MG/20 ML VIAL As Ordered ONE ×2 (12:46→13:45)
[2023-04-23 14:26] VITALS: TEMP 97.4
[2023-04-23 14:45] VITALS: BP 106/61; O2SAT 98
== END 2023-04-23 14:50 | disposition home or self-care (01) ==
LOC: M OPP 11:20
PROVIDERS: ATTEND Internal Medicine Gastroenterology
DX: K31.A11 Gastric intestinal metaplasia without dysplasia, involving the antrum (principal); K92.1 Melena; F17.200 Nicotine dependence, unspecified, uncomplicated; Z79.02 Long term (current) use of antithrombotics/antiplatelets; Z79.2 Long term (current) use of antibiotics; Z79.1 Long term (current) use of non-steroidal anti-inflammatories (NSAID); Z79.82 Long term (current) use of aspirin; Z79.84 Long term (current) use of oral hypoglycemic drugs

== ENCOUNTER → 2023-05-17 | Outpatient (CLI) | payer OTHER ==
[~2023-05-17] MED LIST changes: -NS 1,000 ML IV ONE
[2023-05-17 16:09] LABS: CHOLESTEROL RISK RATIO 2.62 (<5); HDL CHOLESTEROL 40.7 MG/DL (>40); LDL CHOLESTEROL 50.5 MG/DL (<100); NON-HDL-C 66.3 MG/DL
== END ==
LOC: M PLALAB 13:04
PROVIDERS: ATTEND Physician Assistant
DX: E78.00 Pure hypercholesterolemia, unspecified (principal)

== ENCOUNTER → 2023-07-11 | Outpatient (REF) | payer MEDICARE, OTHER ==
[2023-07-11 17:56] LABS: APPEARANCE, URINE HAZY (CLEAR); BACTERIA, URINE AUTO NEGATIVE (NEGATIVE); BILIRUBIN, URINE AUTO NEGATIVE (NEGATIVE); BLOOD, URINE BLOOD NEGATIVE (NEGATIVE); COLOR, URINE AMBER (YELLOW); GLUCOSE, URINE (UA) AUTO 3+ mg/dL (NEGATIVE); KETONE, URINE AUTO NEGATIVE (NEGATIVE); LEUKOCYTE ESTERASE, URINE AUTO 1+ (NEGATIVE); MUCUS, URINE SMALL (NEGATIVE); NITRITE, URINE AUTO NEGATIVE (NEGATIVE); PROTEIN, URINE AUTO NEGATIVE (NEGATIVE); RBC, URINE AUTO 4 /HPF (0-3); SPECIFIC GRAVITY URINE AUTO 1.027 (1.002-1.035); SQUAMOUS EPITHELIAL CELL UR AU 1 /HPF (0-6); UROBILINOGEN, URINE AUTO 0.2 mg/dL (0.0-2.0); WBC, URINE AUTO 12 /HPF (0-3)
== END ==
LOC: M SMT 16:53
PROVIDERS: ATTEND Nurse Practitioner Family
DX: Z86.018 Personal history of other benign neoplasm (principal)

== ENCOUNTER → 2023-07-23 | Outpatient (CLI) | payer OTHER, MEDICARE | LOC: M PAIN 09:30 | PROVIDERS: ATTEND Nurse Practitioner Family | DX: M79.10 Myalgia, unspecified site (principal); M54.50 Low back pain, unspecified; E11.51 Type 2 diabetes mellitus with diabetic peripheral angiopathy without gangrene; E78.5 Hyperlipidemia, unspecified; J44.9 Chronic obstructive pulmonary disease, unspecified; F17.200 Nicotine dependence, unspecified, uncomplicated; Z79.02 Long term (current) use of antithrombotics/antiplatelets; Z79.51 Long term (current) use of inhaled steroids; Z79.84 Long term (current) use of oral hypoglycemic drugs; Z79.82 Long term (current) use of aspirin; Z79.891 Long term (current) use of opiate analgesic; Z79.899 Other long term (current) drug therapy ==

== ENCOUNTER → 2023-09-27 | Outpatient (CLI) | payer OTHER, MEDICARE ==
[~2023-09-27] MED LIST changes: +TRIAMCINOLONE ACETONIDE SUSP 40MG/ML 1ML VIAL As Ordered ONE
== END ==
LOC: M PAIN 08:15
PROVIDERS: ATTEND Anesthesiology
DX: M79.18 Myalgia, other site (principal); G89.29 Other chronic pain; I73.9 Peripheral vascular disease, unspecified; E78.5 Hyperlipidemia, unspecified; J44.9 Chronic obstructive pulmonary disease, unspecified; F17.210 Nicotine dependence, cigarettes, uncomplicated; Z79.82 Long term (current) use of aspirin; Z79.02 Long term (current) use of antithrombotics/antiplatelets; Z79.899 Other long term (current) drug therapy
CPT/HCPCS: 20552; J0665; J3301

== ENCOUNTER → 2023-10-02 | Outpatient (CLI) | payer OTHER, MEDICARE ==
[~2023-10-02] MED LIST changes: -TRIAMCINOLONE ACETONIDE SUSP 40MG/ML 1ML VIAL As Ordered ONE
== END ==
LOC: M PAIN 10:15
PROVIDERS: ATTEND Nurse Practitioner Family
DX: M50.10 Cervical disc disorder with radiculopathy, unspecified cervical region (principal); E78.5 Hyperlipidemia, unspecified; J44.9 Chronic obstructive pulmonary disease, unspecified; N50.0 Atrophy of testis; F17.200 Nicotine dependence, unspecified, uncomplicated; Z79.02 Long term (current) use of antithrombotics/antiplatelets; Z79.51 Long term (current) use of inhaled steroids; Z79.82 Long term (current) use of aspirin; Z79.899 Other long term (current) drug therapy

== ENCOUNTER → 2023-10-29 | Outpatient (CLI) | payer OTHER, MEDICARE | LOC: M PAIN 11:00 | PROVIDERS: ATTEND Nurse Practitioner Family | DX: M79.18 Myalgia, other site (principal); J44.9 Chronic obstructive pulmonary disease, unspecified; E78.5 Hyperlipidemia, unspecified; F17.200 Nicotine dependence, unspecified, uncomplicated; Z79.02 Long term (current) use of antithrombotics/antiplatelets; Z79.52 Long term (current) use of systemic steroids; Z79.82 Long term (current) use of aspirin; Z79.891 Long term (current) use of opiate analgesic; Z79.899 Other long term (current) drug therapy ==

== ENCOUNTER → 2023-12-31 | Outpatient (CLI) | payer MEDICARE, OTHER | LOC: M PAIN 11:00 | PROVIDERS: ATTEND Nurse Practitioner Family | DX: M79.18 Myalgia, other site (principal); G89.29 Other chronic pain; I73.9 Peripheral vascular disease, unspecified; E78.5 Hyperlipidemia, unspecified; J44.9 Chronic obstructive pulmonary disease, unspecified; F17.210 Nicotine dependence, cigarettes, uncomplicated; Z79.01 Long term (current) use of anticoagulants; Z79.899 Other long term (current) drug therapy ==

== ENCOUNTER → 2024-01-03 | Outpatient (REF) | payer MEDICARE, OTHER | LOC: M SFHCDERM 12:30 | PROVIDERS: ATTEND Physician Assistant | DX: T81.49XA Infection following a procedure, other surgical site, initial encounter (principal) ==

== ENCOUNTER → 2024-03-07 | Outpatient (CLI) | payer MEDICARE, OTHER | LOC: M PAIN 10:45 | PROVIDERS: ATTEND Nurse Practitioner Family | DX: M79.18 Myalgia, other site (principal); G89.29 Other chronic pain; M54.2 Cervicalgia; M54.50 Low back pain, unspecified; I73.9 Peripheral vascular disease, unspecified; E78.5 Hyperlipidemia, unspecified; J44.9 Chronic obstructive pulmonary disease, unspecified; F17.210 Nicotine dependence, cigarettes, uncomplicated; Z79.01 Long term (current) use of anticoagulants; Z79.82 Long term (current) use of aspirin; Z79.899 Other long term (current) drug therapy ==

== ENCOUNTER → 2024-04-14 | Outpatient (CLI) | payer MEDICARE, OTHER | LOC: M PAIN 10:00 | PROVIDERS: ATTEND Nurse Practitioner Family | DX: M79.18 Myalgia, other site (principal); M50.10 Cervical disc disorder with radiculopathy, unspecified cervical region; M51.16 Intervertebral disc disorders with radiculopathy, lumbar region; G89.29 Other chronic pain; I73.9 Peripheral vascular disease, unspecified; E78.5 Hyperlipidemia, unspecified; J44.9 Chronic obstructive pulmonary disease, unspecified; F17.210 Nicotine dependence, cigarettes, uncomplicated; Z79.01 Long term (current) use of anticoagulants; Z79.899 Other long term (current) drug therapy; Z79.82 Long term (current) use of aspirin ==

== ENCOUNTER → 2024-05-16 | Outpatient (CLI) | payer MEDICARE, OTHER | LOC: M PAIN 11:30 | PROVIDERS: ATTEND Nurse Practitioner Family | DX: M79.18 Myalgia, other site (principal); G89.29 Other chronic pain; I73.9 Peripheral vascular disease, unspecified; E78.5 Hyperlipidemia, unspecified; M19.90 Unspecified osteoarthritis, unspecified site; J44.9 Chronic obstructive pulmonary disease, unspecified; F17.210 Nicotine dependence, cigarettes, uncomplicated; Z79.01 Long term (current) use of anticoagulants; Z79.82 Long term (current) use of aspirin; Z79.899 Other long term (current) drug therapy ==

== ENCOUNTER 2024-05-31 14:03 | Inpatient (IN) | payer MEDICARE, OTHER ==
[~2024-05-31] VITALS: Ht 185.4 cm; Wt 94.0 kg
[2024-05-31] MEDS: MORPHINE 10 MG/ML 1ML VIAL IM ONE (14:56)
[2024-05-31] MEDS: PERCOCET 5MG/325MG TAB PO ONE (17:34)
[2024-05-31] MEDS ORDERED: VENTAER INH (17:56)
[2024-05-31] MEDS ORDERED: D3 M1CAP2 PO (17:56)
[2024-05-31] MEDS ORDERED: BUDE10.7 INH (18:01)
[2024-05-31] MEDS ORDERED: FAMO40TA3 PO (18:01)
[2024-05-31] MEDS ORDERED: CETI-24 PO (18:01)
[2024-05-31] MEDS ORDERED: CYAN-1 PO (18:01)
[2024-05-31] MEDS ORDERED: ELIQ5TAB PO (18:01)
[2024-05-31] MEDS ORDERED: SIMV40TA20 PO (18:01)
[2024-05-31] MEDS ORDERED: SPIR-10 PO (18:03)
[2024-05-31] MEDS ORDERED: HOME MED LIST COMPLETE! XX SCH (18:05)
[2024-05-31] MEDS: NS (Normal Saline) 0.9% 1,000 ML IV ONE (18:11)
[2024-05-31 18:27] LABS: HEMATOCRIT 45.2 % (42.0-52.0); MEAN CORPUSCULAR HEMOGLOBIN 34.1 pg (27.0-33.0); MEAN CORPUSCULAR HGB CONC 33.2 g/dl (32.0-36.5); MEAN CORPUSCULAR VOLUME 102.7 fl (80.0-96.0); PLATELET COUNT, AUTOMATED 133 10^3/uL (150-450); WHITE BLOOD COUNT 9.2 10^3/uL (4.0-10.0)
[2024-05-31 18:36] LABS: INR 1.06; PROTHROMBIN TIME 14.1 SECONDS (12.5-14.5)
[2024-05-31 18:52] LABS: BLOOD UREA NITROGEN 20 MG/DL (9-23); CALCIUM LEVEL 8.7 MG/DL (8.3-10.6); CARBON DIOXIDE LEVEL 25 MMOL/L (20-31); CHLORIDE LEVEL 109 MMOL/L (98-107); CREATININE FOR GFR 0.86 MG/DL (0.70-1.30); GLOMERULAR FILTRATION RATE > 60.0 (>42); GLUCOSE, FASTING 94 MG/DL (74-106); POTASSIUM SERUM 4.6 MMOL/L (3.5-5.1); SODIUM LEVEL 144 MMOL/L (136-145)
[2024-05-31] MEDS: SYMBICORT 80/4.5MCG INHALER 6GM INH SCH (19:22)
[2024-05-31 19:35] VITALS: BP 129/79; TEMP 98.2; O2SAT 95
[2024-05-31] MEDS: ASPIRIN 81MG ENTERIC TABLET PO SCH (20:16)
[2024-05-31] MEDS: FAMOTIDINE 20 MG TAB PO SCH (20:17)
[2024-05-31] MEDS: EZETIMIBE 10MG TABLET (ZETIA) PO SCH (20:17)
[2024-05-31] MEDS: PANTOPRAZOLE 40MG TAB (PROTONIX) PO SCH (20:17)
[2024-05-31] MEDS: GABAPENTIN 400MG CAP PO SCH (20:17)
[2024-05-31] MEDS: SIMVASTATIN 40 MG TAB PO SCH (20:18)
[2024-05-31] MEDS: METOPROLOL SUCC *XL* 25MG TAB (TopROL *XL*) PO SCH (20:18)
[2024-05-31] MEDS: PERCOCET 5MG/325MG TAB PO PRN (21:08)
[2024-06-01] MEDS: PERCOCET 5MG/325MG TAB PO PRN (01:16)
[2024-06-01 04:10] VITALS: BP 127/71; TEMP 98.2; O2SAT 90
[2024-06-01 06:47] LABS: HEMATOCRIT 40.2 % (42.0-52.0); HEMOGLOBIN 13.6 g/dl (13.5-17.5); MEAN CORPUSCULAR HEMOGLOBIN 34.7 pg (27.0-33.0); MEAN CORPUSCULAR HGB CONC 33.8 g/dl (32.0-36.5); MEAN CORPUSCULAR VOLUME 102.6 fl (80.0-96.0); PLATELET COUNT, AUTOMATED 127 10^3/uL (150-450); RED BLOOD COUNT 3.92 10^6/uL (4.30-6.10); WHITE BLOOD COUNT 7.9 10^3/uL (4.0-10.0)
[2024-06-01 07:08] LABS: BLOOD UREA NITROGEN 19 MG/DL (9-23); CALCIUM LEVEL 8.4 MG/DL (8.3-10.6); CARBON DIOXIDE LEVEL 26 MMOL/L (20-31); CHLORIDE LEVEL 108 MMOL/L (98-107); CREATININE FOR GFR 0.89 MG/DL (0.70-1.30); GLOMERULAR FILTRATION RATE > 60.0 (>42); GLUCOSE, FASTING 110 MG/DL (74-106); POTASSIUM SERUM 4.5 MMOL/L (3.5-5.1); SODIUM LEVEL 139 MMOL/L (136-145)
[2024-06-01] MEDS: TIOTROPIUM INHALER/CAPSULE (SPIRIVA) INH SCH (08:00)
[2024-06-01] MEDS ORDERED: METOPROLOL SUCC *XL* 25MG TAB (TopROL *XL*) PO SCH (09:00)
[2024-06-01] MEDS ORDERED: EZETIMIBE 10MG TABLET (ZETIA) PO SCH (09:00)
[2024-06-01] MEDS: APIXABAN 5 MG TAB (ELIQUIS) PO SCH (11:52)
[2024-06-01 12:00] VITALS: BP 124/72; TEMP 97.8; O2SAT 98
[2024-06-01 20:00] VITALS: BP 120/68; TEMP 98.8; O2SAT 92
[2024-06-01] MEDS ORDERED: PILL CUTTER 1 EACH XX ONE (21:10)
[2024-06-02 00:23] VITALS: BP 120/68; TEMP 98.8
[2024-06-02 04:00] VITALS: BP 115/72; TEMP 98.2; O2SAT 94
[2024-06-02 06:07] LABS: BASO % 0.4 % (0.0-1.0); EOS % 0.2 % (0.0-3.0); HEMATOCRIT 39.9 % (42.0-52.0); HEMOGLOBIN 13.3 g/dl (13.5-17.5); LYMPH # 1.3 10^3/uL (1.5-5.0); LYMPH % 15.8 % (24.0-44.0); MEAN CORPUSCULAR HEMOGLOBIN 34.2 pg (27.0-33.0); MEAN CORPUSCULAR HGB CONC 33.3 g/dl (32.0-36.5); MEAN CORPUSCULAR VOLUME 102.6 fl (80.0-96.0); MONO # 1.2 10^3/uL (0.0-0.8); MONO % 14.6 % (2.0-8.0); NEUTROPHILS # 5.6 10^3/uL (1.5-8.5); NEUTROPHILS % 68.6 % (36.0-66.0); PLATELET COUNT, AUTOMATED 116 10^3/uL (150-450); RED BLOOD COUNT 3.89 10^6/uL (4.30-6.10); WHITE BLOOD COUNT 8.1 10^3/uL (4.0-10.0)
[2024-06-02 06:22] LABS: BLOOD UREA NITROGEN 18 MG/DL (9-23); CALCIUM LEVEL 8.4 MG/DL (8.3-10.6); CARBON DIOXIDE LEVEL 26 MMOL/L (20-31); CHLORIDE LEVEL 108 MMOL/L (98-107); CREATININE FOR GFR 0.96 MG/DL (0.70-1.30); GLOMERULAR FILTRATION RATE > 60.0 (>42); GLUCOSE, FASTING 105 MG/DL (74-106); POTASSIUM SERUM 4.1 MMOL/L (3.5-5.1); SODIUM LEVEL 142 MMOL/L (136-145)
[2024-06-02] MEDS: ENTRESTO 24-26MG TABLET (SACUBITRIL/VALSARTAN) PO SCH (09:21)
[2024-06-02] MEDS: LIDOCAINE 5% (LIDODERM) PATCH TD SCH (09:22)
[2024-06-03 04:15] VITALS: BP 104/67; TEMP 98.2; O2SAT 94
[2024-06-03 20:39] VITALS: BP 103/66
[2024-06-04 04:37] VITALS: BP 103/68; TEMP 98.2; O2SAT 95
[2024-06-04 20:00] VITALS: BP 105/65; TEMP 98.2; O2SAT 95
[2024-06-04 20:31] VITALS: BP 105/65
[2024-06-05 04:00] VITALS: BP 104/69; TEMP 98.2; O2SAT 95
[2024-06-05] MEDS: RAMELTEON 8 MG TAB (ROZEREM) PO ONE (04:16)
[2024-06-05] MEDS ORDERED: RAMELTEON 8 MG TAB (ROZEREM) PO PRN (08:00)
[2024-06-05] MEDS: POLYTRIM OPTH DROPS 10ML OD SCH (09:32)
[2024-06-05] MEDS ORDERED: ACET32TAB PO (10:07)
[2024-06-05] MEDS ORDERED: TRAM50TA2 PO (10:07)
== END 2024-06-05 15:00 | disposition home health service (06) | DRG 563 ==
LOC: M ED 14:03 → EDBD 14:03 → M ED INP 17:45 → M MS5PR 19:35
PROVIDERS: ADMIT Internal Medicine; ATTEND Internal Medicine
DX: S42.202A Unspecified fracture of upper end of left humerus, initial encounter for closed fracture (principal); I50.30 Unspecified diastolic (congestive) heart failure; S82.001A Unspecified fracture of right patella, initial encounter for closed fracture; I48.91 Unspecified atrial fibrillation; K21.9 Gastro-esophageal reflux disease without esophagitis; I11.0 Hypertensive heart disease with heart failure; J44.9 Chronic obstructive pulmonary disease, unspecified; I73.9 Peripheral vascular disease, unspecified; I25.10 Atherosclerotic heart disease of native coronary artery without angina pectoris; F17.200 Nicotine dependence, unspecified, uncomplicated; M19.90 Unspecified osteoarthritis, unspecified site; E78.5 Hyperlipidemia, unspecified; Z85.51 Personal history of malignant neoplasm of bladder; W18.30XA Fall on same level, unspecified, initial encounter; Y92.015 Private garage of single-family (private) house as the place of occurrence of the external cause; Z79.01 Long term (current) use of anticoagulants; Z79.82 Long term (current) use of aspirin; Z79.899 Other long term (current) drug therapy

== ENCOUNTER → 2024-06-16 | Outpatient (CLI) | payer MEDICARE ==
[~2024-06-16] MED LIST changes: +ACET32TAB PO; +BUDE10.7 INH; +CETI-24 PO; +CYAN-1 PO; +D3 M1CAP2 PO; +ELIQ5TAB PO; +FAMO40TA3 PO; +SIMV40TA20 PO; +TRAM50TA2 PO; +VENTAER INH
== END ==
LOC: M SOG 07:52
PROVIDERS: ATTEND Physician Assistant
DX: S82.001A Unspecified fracture of right patella, initial encounter for closed fracture (principal); S42.202A Unspecified fracture of upper end of left humerus, initial encounter for closed fracture

== ENCOUNTER → 2024-07-07 | Outpatient (CLI) | payer MEDICARE | LOC: M SOG 13:46 | PROVIDERS: ATTEND Physician Assistant | DX: S42.202D Unspecified fracture of upper end of left humerus, subsequent encounter for fracture with routine healing (principal); S82.001D Unspecified fracture of right patella, subsequent encounter for closed fracture with routine healing ==

== ENCOUNTER → 2024-08-18 | Outpatient (CLI) | payer MEDICARE | LOC: M SOG 07:57 | PROVIDERS: ATTEND Physician Assistant | DX: S42.212D Unspecified displaced fracture of surgical neck of left humerus, subsequent encounter for fracture with routine healing (principal); S82.001D Unspecified fracture of right patella, subsequent encounter for closed fracture with routine healing; M19.042 Primary osteoarthritis, left hand; Z87.81 Personal history of (healed) traumatic fracture ==

== ENCOUNTER 2024-09-08 11:13 | Outpatient (RCR) | payer MEDICARE | END 2024-09-10 | LOC: M PT 11:13 | PROVIDERS: ATTEND Physician Assistant | DX: S82.001D Unspecified fracture of right patella, subsequent encounter for closed fracture with routine healing (principal) ==

== ENCOUNTER → 2024-09-30 | Outpatient (CLI) | payer MEDICARE | LOC: M SOG 06:50 | PROVIDERS: ATTEND Orthopaedic Surgery | DX: S42.202D Unspecified fracture of upper end of left humerus, subsequent encounter for fracture with routine healing (principal) ==

== ENCOUNTER → 2024-12-23 | Outpatient (CLI) | payer MEDICARE, OTHER ==
[~2024-12-23] MED LIST changes: +PROHANCE 279.3MG/ML 15ML VIAL ONE; +PROHANCE 279.3MG/ML 5ML VIAL ONE
== END ==
LOC: M PLAIMG 07:58
PROVIDERS: ATTEND Physician Assistant Medical
DX: H90.3 Sensorineural hearing loss, bilateral (principal)
CPT/HCPCS: 70553; A9576

== ENCOUNTER → 2025-04-23 | Outpatient (CLI) | payer MEDICARE, OTHER ==
[~2025-04-23] MED LIST changes: -EZET10TA21 PO; +EZET10TA57 PO; -PROHANCE 279.3MG/ML 15ML VIAL ONE; -PROHANCE 279.3MG/ML 5ML VIAL ONE
== END ==
LOC: M SOG 14:52
PROVIDERS: ATTEND Physician Assistant
DX: M25.512 Pain in left shoulder (principal)